=== PATIENT | female | born 1945 | race Caucasian/White ===

== ENCOUNTER → 2017-11-16 15:47 | Outpatient (CLI) | payer MEDICARE, OTHER, SELFPAY ==
--- NOTE | 2017-11-16 | MM_ITS ---
MM Dig SC mamm unilat LT CAD CAD Screening ORDERING PHYSICIAN : Shelley Hernandez PATIENT AGE: 72 years GENDER: Female INDICATION: Right mastectomy for previous breast cancer. No hormones. No new complaints. Family history: Sr. and with breast cancer. TECHNIQUE: Standard CC and MLO images were obtained. R2 CAD reviewed COMPARISON:.: October 2016, 2015, 2012, 2011 mammograms utilized for comparison ========FINDINGS: ====== No significant new findings at the left breast. Moderately dense breast with most evident fibroglandular elements towards upper-outer quadrant stable pattern with no dominant mass nor suspicious calcifications. No significant new findings a follow-up left mammogram in one year recommended =====IMPRESSION: Stable left breast. . Moderately dense breast with no new areas concern Follow-up in one year BI-RADS Category: 1 Negative RECOMMENDED FOLLOW-UP: 1YR - 1 YEAR FOLLOW-UP (A letter has been sent to the patient regarding results of the study.)
== END ==
PROVIDERS: PCP Nurse Practitioner Family; Visit Provider Nurse Practitioner Family
DX: Z12.31 Encounter for screening mammogram for malignant neoplasm of breast (principal)
CPT/HCPCS: 77067

== ENCOUNTER → 2018-12-17 16:15 | Outpatient (CLI) | payer MEDICARE, OTHER, SELFPAY ==
--- NOTE | 2018-12-17 16:27 | MM_ITS ---
MM Dig SC mamm unilat LT CAD Ordering Physician: Shelley Hernandez APRN Patient Age: 73 years Female COMPARISON: October 2017, 2016, 2015, 2014, 2011 INDICATION: Routine screening left mammogram. No hormones. No new complaints. Previous right mastectomy Family history. Sister and maternal aunt with breast cancer TECHNIQUE: Cc and MLO view left breast with CAD screening FINDINGS: Moderate breast density with majority of fibroglandular elements towards upper outer quadrant. Stable pattern with no dominant nor suspicious mass. No suspicious calcifications. No significant new findings. Ongoing annual follow-up recommended. IMPRESSION: Stable left breast. No significant new findings. Moderate breast density . follow-up one year BI-RADS Category: 1 Negative RECOMMENDED FOLLOW-UP: 1YR 1 YEAR FOLLOW-UP A letter has been sent to the patient regarding results of the study.)
== END ==
PROVIDERS: PCP Nurse Practitioner Family; Visit Provider Nurse Practitioner Family
DX: Z12.31 Encounter for screening mammogram for malignant neoplasm of breast (principal)
CPT/HCPCS: 77067

== ENCOUNTER 2024-10-13 12:28 | Observation (INO) | payer MEDICARE, OTHER, SELFPAY ==
[2024-10-13] VITALS (9 sets, daily range): BP systolic 114–142; BP diastolic 57–74; PULSE 107–120; RESP 16–31; TEMP 36.8–37.4; O2SAT 87–98; BMI 29.6; BMI 26.6
--- NOTE | 2024-10-13 12:44 | XR_ITS ---
PROCEDURE INFORMATION: Exam: XR Chest Exam date and time: 10/13/2024 1:00 PM Age: 79 years old Clinical indication: Cough and shortness of breath; Additional info: SOA, cough TECHNIQUE: Imaging protocol: Radiologic exam of the chest. Views: 1 view. COMPARISON: No relevant prior studies available. FINDINGS: Lungs: Bibasilar hazy patchy opacities, volzi-[id number]-adti-left. Pleural spaces: Unremarkable. No pleural effusion. No pneumothorax. Heart/Mediastinum: Unremarkable. No cardiomegaly. Vasculature: Atherosclerotic disease of the aortic arch. Bones/joints: Degenerative changes of the visualized osseous structures. Demineralized bones. Soft tissues: Right chest wall postprocedural changes. IMPRESSION: Basilar opacities likely service liaison representative of scarring/atelectasis without focal consolidation, difficult to exclude superimposed infection.
--- NOTE | 2024-10-13 12:44 | PC.NURSE ---
PT 87% ON ROOM AIR, PLACED ON 2L/NC, SAT TO 95% AT THIS TIME
--- NOTE | 2024-10-13 12:48 | ED_ITS ---
Discharge Plan Disposition Patient Disposition: Admitted Condition: Good Clinical Impressions Clinical Impression: Influenza A with pneumonia Discharge ED Provider: Aramis Jara General Adult HPI <KAYLEE Bella - Last Filed: 10/13/24 14:30> General Chief complaint: Weakness Stated complaint: cough soa lethargy fever Time Seen by Provider: 10/13/24 12:31 Mode of Arrival: Wheelchair Limitations: No Limitations Description of Symptoms (Recalled from ER Triage Doc. by RN): PT BROUGHT BY FAMILY FOR COUGH, BODYACHES, DIZZINESS AND FAMILY REPORTS PT IS LETHARGIC PT ALERT AND WILL ANSWER QUESTIONS. SYMPTOMS X 2 DAYS WITHOUT IMPROVEMENT History of Present Illness HPI narrative: Patient presents with cough, fever, runny nose since Monday. Today she had increasing fatigue. She is also complained of shortness of breath. She was exposed to upper respiratory symptoms by family member. MD complaint: cough, dyspnea Onset (ago): day(s) Location: chest Severity: moderate Consistency: constant Relieving factors: none Exacerbating factors: none Associated symptoms: fever/chills, shortness of breath and weakness; negative nausea/vomiting Related Data Home Medications ?Medication ?Instructions ?Recorded ?Confirmed losartan 25 mg tablet 25 mg PO DAILY 10/13/24 10/13/24 simvastatin 10 mg tablet 10 mg PO DAILY 10/13/24 10/13/24 Allergies Allergy/AdvReac Type Severity Reaction Status Date / Time peanut Allergy Other Verified 10/13/24 12:49 PFSH <KAYLEE Bella - Last Filed: 10/13/24 14:30> PFS Disclaimer: The information contained in this section may have been updated after the patient was seen, as this information can be updated by other users. Medical History Hypertension Breast cancer Surgical History H/O mastectomy Family History No significant family history Social History (Updated 10/13/24 @ 14:30 by KAYLEE Bella) Smoking Status: Unknown if ever smoked alcohol intake: never current occupational status: other Travel in the last 8 weeks: None Have you lived/traveled outside [place] in past 30 days?: No Contact w/someone who lives/traveled outside US past 30 days?: No Exposure to someone with infectious disease in past 14 days?: No Do you have a fever (greater than 100.4 F or 38 C)?: Yes Have you tested positive for COVID-19: No Exposed to someone with COVID-19 in past 14 days?: No Do you have a sore throat?: No Do you have a cough?: Yes Do you have any weakness?: Yes Do you have any diarrhea?: No Are you experiencing any unusual bleeding?: No Do you have any muscle aches/pain?: No Do you have any abdominal pain?: No Are you experiencing loss of taste or smell?: No <KAYLEE Bella - Last Filed: 10/13/24 14:30> ROS Obtained: Yes Systems reviewed as appropriate & no additional complaints except as documented Physical Exam <KAYLEE Bella Last Filed: 10/13/24 14:30> General General appearance: alert and in no apparent distress Head Head exam: atraumatic and normocephalic Eye Eye exam: Present normal appearance and EOMI ENT ENT exam: Present normal exam Chest Chest inspection: Present symmetric chest wall rise Respiratory Respiratory exam: Present other (rales B/L with diminished breath sounds ); Absent wheezes or stridor Cardiovascular Cardiovascular exam: Present regular rate and normal rhythm; Absent systolic murmur Neurological Exam Neurological exam: Present alert and oriented X3 Psychiatric Psychiatric exam: Present normal affect and normal mood Skin Skin exam: Present warm, dry and intact Medical Decision Making <KAYLEE Bella Last Filed: 10/13/24 14:30> Medical Records Screening: Per USPSTF and CDC recommendations, given the prevalence of disease in our region, it is our hospital?s policy to screen for HIV and viral Hepatitis for all patients aged 18 and over and those with ongoing risk factors. Tony Inquiry Pt receiving controlled substance: No Vital Signs: 10/13/24 12:30 10/13/24 12:42 10/13/24 12:45 Temperature 99.3 F Temperature Source Oral Pulse Rate 116 H 116 H Pulse Rate [Apical] 120 H Respiratory Rate 18 28 H 21 Blood Pressure Blood Pressure [Right Arm] 142/66 H Blood Pressure Mean Blood Pressure Mean [Right Arm] 91 Blood Pressure Source Blood Pressure Source [Right Arm] Automatic Cuff Blood Pressure Position [Right Arm] Sitting 02 Sat by Pulse Oximetry 87 L 87 L 95 Oxygen Delivery Method Room Air Room Air Nasal Cannula Oxygen Flow Rate (LPM) 2 10/13/24 13:00 10/13/24 13:30 10/13/24 14:34 Temperature 98.8 F Temperature Source Oral Pulse Rate 112 H 110 H 110 H Pulse Rate [Apical] Respiratory Rate 23 31 H 28 H Blood Pressure 118/74 132/57 L 114/58 L Blood Pressure [Right Arm] Blood Pressure Mean 94 Blood Pressure Mean [Right Arm] Blood Pressure Source Automatic Cuff Blood Pressure Source [Right Arm] Blood Pressure Position [Right Arm] 02 Sat by Pulse Oximetry 96 96 Oxygen Delivery Method Room Air Nasal Cannula Nasal Cannula Oxygen Flow Rate (LPM) 2 2 Lab Data Lab Results 10/13/24 12:37: SARS-CoV-2 (PCR) Not detected, Influenza A Untype (PCR) Detected A, Influenza Type B (PCR) Not detected 10/13/24 12:44: VBG pH 7.40, VBG pCO2 36.3, VBG pO2 60.9 H, VBG HCO3 21.8 L, VBG Total CO2 22.9 L, VBG O2 Saturation 91.7 H, VBG Base Excess -3.0 L, VBG Lactic Acid 1.2 10/13/24 12:45: WBC 10.4, RBC 3.77 L, Hgb 11.5 L, Hct 33.7 L, MCV 89.4, MCH 30.5, MCHC 34.1, RDW 12.9, Plt Count 262, MPV 9.7, Neut % (Auto) 74.6, Lymph % (Auto) 16.6, [place] % (Auto) 8.2, Eos % (Auto) 0.0 L, Baso % (Auto) 0.2, Neut # (Auto) 7.8, Lymph # (Auto) 1.7, [place] # (Auto) 0.9, Eos # (Auto) 0.0, Baso # (Auto) 0.0, Sodium 134 L, Potassium 3.3 L, Chloride 99, Carbon Dioxide 27, Anion Gap 11.3, BUN 15, Creatinine 0.70, Estimated Creat Clear 50, Estimated GFR 81, Est GFR ( Amer) 97, Glucose 108 H, Calcium 8.4, Total Bilirubin 0.7, AST 30, ALT 18, Alkaline Phosphatase 93, Troponin I 0.02, NT-Pro-B Natriuret Pep 3180 H, Total Protein 6.7, Albumin 3.9, Globulin 2.8, Albumin/Globulin Ratio 1.4 10/13/24 12:45 10/13/24 12:45 Orders (Tests/Meds): ED MEDICATIONS Generic Name Dose Route Start Last Admin Trade Name Freq PRN Reason Stop Dose Admin Acetaminophen 650 mg 10/13/24 14:07 10/13/24 14:14 Acetaminophen 325mg Tab PO 11/12/24 14:06 650 mg Q4HP PRN Administration Fever or Mild Pain (1-3) Discontinued Medications Generic Name Dose Route Start Last Admin Trade Name Freq PRN Reason Stop Dose Admin Oseltamivir Phosphate 75 mg 10/13/24 14:04 10/13/24 14:14 Oseltamivir 75mg Capsule PO 10/13/24 14:05 75 mg ONCE ONE Administration Sodium Chloride 500 ml 10/13/24 12:45 10/13/24 13:03 Sodium Chloride 0.9% 500ml Bag IV 10/13/24 12:46 500 ml ONCE ONE Administration Sodium Chloride 500 ml 10/13/24 14:03 10/13/24 14:14 Sodium Chloride 0.9% 500ml Bag IV 10/13/24 14:04 500 ml ONCE ONE Administration ORDERS Category Date Time Status POCUS Point of Care (ER Only) Stat Exams 10/13/24 13:54 Completed XR chest portable Stat Exams 10/13/24 12:44 Completed BNP [NT Pro Brain Natriuretic Pep.] Stat Lab 10/13/24 12:45 Completed Complete Blood Count Auto Diff AMLAB Lab 10/14/24 06:00 Ordered Complete Blood Count Auto Diff Stat Lab 10/13/24 12:45 Completed Comprehensive Metabolic Panel AMLAB Lab 10/14/24 06:00 Ordered Comprehensive Metabolic Panel Stat Lab 10/13/24 12:45 Completed HIV Combo Routine Lab 10/13/24 14:07 Ordered HIV Combo Stat Lab 10/13/24 12:45 Received Hepatitis C Ab Qual. W/ RFX Routine Lab 10/13/24 14:07 Ordered Hepatitis C Ab Qual. W/ RFX Stat Lab 10/13/24 12:45 Received Magnesium AMLAB Lab 10/14/24 06:00 Ordered Rapid PCR Covid and Flu A/B Stat Lab 10/13/24 12:37 Completed Trop I [Troponin I] Stat Lab 10/13/24 12:45 Completed Troponin I Q3H Lab 10/13/24 16:00 Ordered Troponin I Q3H Lab 10/13/24 19:00 Ordered UA [Urinalysis and Microscopic] Stat Lab 10/13/24 12:48 Ordered Blood Culture Stat Micro 10/13/24 13:32 Received VBG [Venous Blood Gas] Stat RT 10/13/24 12:44 Completed Medical Decision Narrative: In summary patient is a 79-year-old who presents the emergency department for evaluation of cough, fever, shortness of. Patient is tachycardic, upon arrival, afebrile. Rales on exam. Differential diagnosis includes pneumonia, influenza, dehydration, heart failure, ACS. Initial workup will be conducted with labs, EKG, chest x-ray, VBG. Initial inventions include IV fluid bolus. Initial workup reviewed by me positive for influenza A, BNP elevated, however EF normal on bedside u/s. Upon repeat evaluation patient had improvement in symptoms after IV fluids. Given Tamiflu and admitted to hospitalist for influenza A pneumonia given hypoxia, tachcardia and dyspnpea. <Aramis Jara MD - Last Filed: 10/13/24 14:48> Vital Signs: 10/13/24 12:30 10/13/24 12:42 10/13/24 12:45 Temperature 99.3 F Temperature Source Oral Pulse Rate 116 H 116 H Pulse Rate [Apical] 120 H Respiratory Rate 18 28 H 21 Blood Pressure Blood Pressure [Right Arm] 142/66 H Blood Pressure Mean Blood Pressure Mean [Right Arm] 91 Blood Pressure Source Blood Pressure Source [Right Arm] Automatic Cuff Blood Pressure Position [Right Arm] Sitting 02 Sat by Pulse Oximetry 87 L 87 L 95 Oxygen Delivery Method Room Air Room Air Nasal Cannula Oxygen Flow Rate (LPM) 2 10/13/24 13:00 10/13/24 13:30 10/13/24 14:34 Temperature 98.8 F Temperature Source Oral Pulse Rate 112 H 110 H 110 H Pulse Rate [Apical] Respiratory Rate 23 31 H 28 H Blood Pressure 118/74 132/57 L 114/58 L Blood Pressure [Right Arm] Blood Pressure Mean 94 Blood Pressure Mean [Right Arm] Blood Pressure Source Automatic Cuff Blood Pressure Source [Right Arm] Blood Pressure Position [Right Arm] 02 Sat by Pulse Oximetry 96 96 Oxygen Delivery Method Room Air Nasal Cannula Nasal Cannula Oxygen Flow Rate (LPM) 2 2 Lab Data Lab Results 10/13/24 12:37: SARS-CoV-2 (PCR) Not detected, Influenza A Untype (PCR) Detected A, Influenza Type B (PCR) Not detected 10/13/24 12:44: VBG pH 7.40, VBG pCO2 36.3, VBG pO2 60.9 H, VBG HCO3 21.8 L, VBG Total CO2 22.9 L, VBG O2 Saturation 91.7 H, VBG Base Excess -3.0 L, VBG Lactic Acid 1.2 10/13/24 12:45: WBC 10.4, RBC 3.77 L, Hgb 11.5 L, Hct 33.7 L, MCV 89.4, MCH 30.5, MCHC 34.1, RDW 12.9, Plt Count 262, MPV 9.7, Neut % (Auto) 74.6, Lymph % (Auto) 16.6, [place] % (Auto) 8.2, Eos % (Auto) 0.0 L, Baso % (Auto) 0.2, Neut # (Auto) 7.8, Lymph # (Auto) 1.7, [place] # (Auto) 0.9, Eos # (Auto) 0.0, Baso # (Auto) 0.0, Sodium 134 L, Potassium 3.3 L, Chloride 99, Carbon Dioxide 27, Anion Gap 11.3, BUN 15, Creatinine 0.70, Estimated Creat Clear 50, Estimated GFR 81, Est GFR ( Amer) 97, Glucose 108 H, Calcium 8.4, Total Bilirubin 0.7, AST 30, ALT 18, Alkaline Phosphatase 93, Troponin I 0.02, NT-Pro-B Natriuret Pep 3180 H, Total Protein 6.7, Albumin 3.9, Globulin 2.8, Albumin/Globulin Ratio 1.4 Orders (Tests/Meds): ED MEDICATIONS Generic Name Dose Route Start Last Admin Trade Name Freq PRN Reason Stop Dose Admin Acetaminophen 650 mg 10/13/24 14:07 10/13/24 14:14 Acetaminophen 325mg Tab PO 11/12/24 14:06 650 mg Q4HP PRN Administration Fever or Mild Pain (1-3) Discontinued Medications Generic Name Dose Route Start Last Admin Trade Name Freq PRN Reason Stop Dose Admin Oseltamivir Phosphate 75 mg 10/13/24 14:04 10/13/24 14:14 Oseltamivir 75mg Capsule PO 10/13/24 14:05 75 mg ONCE ONE Administration Sodium Chloride 500 ml 10/13/24 12:45 10/13/24 13:03 Sodium Chloride 0.9% 500ml Bag IV 10/13/24 12:46 500 ml ONCE ONE Administration Sodium Chloride 500 ml 10/13/24 14:03 10/13/24 14:14 Sodium Chloride 0.9% 500ml Bag IV 10/13/24 14:04 500 ml ONCE ONE Administration ORDERS Category Date Time Status POCUS Point of Care (ER Only) Stat Exams 10/13/24 13:54 Completed XR chest portable Stat Exams 10/13/24 12:44 Completed BNP [NT Pro Brain Natriuretic Pep.] Stat Lab 10/13/24 12:45 Completed Complete Blood Count Auto Diff AMLAB Lab 10/14/24 06:00 Ordered Complete Blood Count Auto Diff Stat Lab 10/13/24 12:45 Completed Comprehensive Metabolic Panel AMLAB Lab 10/14/24 06:00 Ordered Comprehensive Metabolic Panel Stat Lab 10/13/24 12:45 Completed HIV Combo Routine Lab 10/13/24 14:07 Ordered HIV Combo Stat Lab 10/13/24 12:45 Received Hepatitis C Ab Qual. W/ RFX Routine Lab 10/13/24 14:07 Ordered Hepatitis C Ab Qual. W/ RFX Stat Lab 10/13/24 12:45 Received Magnesium AMLAB Lab 10/14/24 06:00 Ordered Rapid PCR Covid and Flu A/B Stat Lab 10/13/24 12:37 Completed Trop I [Troponin I] Stat Lab 10/13/24 12:45 Completed Troponin I Q3H Lab 10/13/24 16:00 Ordered Troponin I Q3H Lab 10/13/24 19:00 Ordered UA [Urinalysis and Microscopic] Stat Lab 10/13/24 12:48 Ordered Blood Culture Stat Micro 10/13/24 13:32 Received VBG [Venous Blood Gas] Stat RT 10/13/24 12:44 Completed ECG Data Tracing #1: Independently inter by me rate is 114, rhythm is regular, axis is normal, no ST elevation in anatomical contiguous leads, QTc 402. Medical Decision Narrative: In summary patient is a 79-year-old who presents the emergency department for evaluation of cough, fever, shortness of. Patient is tachycardic, upon arrival, afebrile. Rales on exam. Differential diagnosis includes pneumonia, influenza, dehydration, heart failure, ACS. Initial workup will be conducted with labs, EKG, chest x-ray, VBG. Initial inventions include IV fluid bolus. Initial workup reviewed by me positive for influenza A, BNP elevated, however EF normal on bedside u/s. Upon repeat evaluation patient had improvement in symptoms after IV fluids. Given Tamiflu and admitted to hospitalist for influenza A pneumonia given hypoxia, tachcardia and dyspnpea. Aramis Jara: I was consulted by the RAFAEL, and we discussed the complexity of the problems being addressed. I approved the treatment and management plan for this patient's care in the emergency department, thus performing a substantive portion of the medical decision making. Patient is influenza A positive, judicious volume resuscitation was conducted although full sepsis bolus fluids were considered they will be deferred given that she appeared euvolemic after 1 L crystalloid resuscitation has an elevated BNP. Agoas-tw-tsia cardiac ultrasound performed at bedside shows grossly normal ejection fraction. Given acute hypoxic respiratory failure in the setting of influenza A Tamiflu was administered and patient was admitted in stable condition. Indication: Shortness of breath Identified cardiac views: Cardiac parasternal long and modified apical four-chamber Findings: Cardiac activity present, gross wall motion normal, pericardial fusion absent, grossly decreased excursion of the aortic valve Impression: -From above Images were saved to permanent archive The study was technically adequate CPT: 54173 This study was performed by me, and I personally interpreted all images/videos. Based on my clinical judgement, these images were adequate and did not necessitate further imaging. Critical Care <KAYLEE Bella - Last Filed: 10/13/24 14:30> Critical Care Time Critical Care Time: No
--- NOTE | 2024-10-13 12:56 | ECG_ITS ---
APPROVED REPORT Exam: Resting ECG HR:114 bpm ECG Measurements Heart Rate 114 AXES ID 184 P 58 QRSd 77 QRS 59 QT 335 T 72 QTc 402 Conclusion SINUS TACHYCARDIA ABNORMAL RHYTHM ECG Electronically signed by : DORIS CALDWELL, 10/13/2024 14:30:34
[2024-10-13 12:59] LABS: Coronavirus 19, PCR Not Detected (NotDetected); Influenza B, PCR Not Detected (NotDetected)
[2024-10-13 13:03] LABS: Basophils % 0.2 % (0.1-2.0); Hematocrit 33.7 % (37.0-47.0); Hemoglobin 11.5 g/dL (12.2-16.2); Lymphocytes # 1.7 K/mm3 (0.7-4.5); Lymphocytes % 16.6 % (10-50); Mean Corpuscular HGB Conc 34.1 g/dL (31.8-35.4); Mean Corpuscular Hemoglobin 30.5 pg (27.0-31.2); Mean Corpuscular Volume 89.4 fl (81-99); Mean Platelet Volume 9.7 fl (7.4-10.4); Monocytes # 0.9 K/mm3 (0.1-1.0); Monocytes % 8.2 % (1.7-9.3); Neutrophils # 7.8 K/mm3 (1.8-7.8); Neutrophils % 74.6 % (37.0-80.0); Platelet Count 262 K/mm3 (142-424); Red Blood Count 3.77 M/mm3 (4.20-5.40); Red Cell Distribution Width 12.9 % (11.5-17.5); White Blood Count 10.4 K/mm3 (4.8-10.8)
[2024-10-13] MEDS: SODIUM CHLORIDE 0.9% 500ML BAG 500 ML IV ×2 (13:03→14:14)
[2024-10-13 13:06] LABS: Lactate Venous 1.2 mmol/L (0.4-2.0); VBG HCO3 21.8 mmol/L (23-30); VBG Oxygen Saturation 91.7 % (50-70); VBG PCO2 36.3 mmol/L (35-51); VBG PO2 60.9 mmol/L (28-40); VBG Total CO2 22.9 mmol/L (23-27)
[2024-10-13 13:10] LABS: Albumin Level 3.9 g/dl (3.5-5.0); Chloride 99 mmol/L (98-107); Potassium 3.3 mmoL/L (3.5-5.1); Sodium 134 mmol/L (136-145)
[2024-10-13 13:13] LABS: Alanine Aminotransferase 18 U/L (12-78); Albumin/Globulin Ratio 1.4 (1.1-1.8); Alkaline Phosphatase 93 U/L (38-126); Anion Gap 11.3 mEq/L (5-15); Aspartate Amino Transferase 30 U/L (14-36); Bilirubin,Total 0.7 mg/dl (0.2-1.3); Blood Urea Nitrogen 15 mg/dl (7-17); Calcium 8.4 mg/dl (8.4-10.2); Carbon Dioxide 27 mmol/L (22.0-30.0); Creatinine Clearance Estimated 50 mL/min (50-200); Estimated Glomerular Filt Rate 81 ml/min (>60); GFR (African American) 97 ML/MIN (>60); Globulin 2.8 g/dL (1.3-3.2); Glucose 108 mg/dl (74-100); Total Protein,Serum 6.7 g/dl (6.3-8.2)
[2024-10-13 13:23] LABS: NT Pro Brain Natriuretic Pep. 3180 pg/mL (0-450)
[2024-10-13 13:25] LABS: Influenza A, PCR Detected (NotDetected)
[2024-10-13 13:25] LABS: Troponin I 0.02 ng/ml (0.00-0.034)
--- NOTE | 2024-10-13 13:43 | PC.NURSE ---
ROUNDED ON THE PT. THE PT VOICES THAT SHE DOES NOT NEED ANYTHING AT THIS TIME. CALL LIGHT IS WITHIN REACH OF THE PT. FAMILY MEMBERS ARE PRESENT AT THE BEDSIDE.
--- NOTE | 2024-10-13 14:09 | P.HP_ITS ---
History of Present Illness *Admission Date: 10/13/24 *Reason for visit:: dyspnea, weakness *History of present illness: 79-year-old female history of breast cancer status postmastectomy in 1999 of the right breast, history of hypertension. Otherwise no significant past medical history. She presented to the ER with 2 to 3 days of worsening cough, weakness, shortness of breath. States she was becoming somewhat confused and severely fatigued. On initial workup found to be in tachypneic. Hypoxemic necessitating 2 L oxygen to sat in the low 90s. Workup in the ER found to be positive for flu A with pneumonia on imaging. Medicine consulted for admission and further management. Review of ER workup with mild hyponatremia and hypokalemia. Has patchy right lower lobe airspace disease. Feeling better after receiving fluids in the ER. Afebrile at this time. Denies nausea or vomiting. Denies any toña chest pain. No syncope. Alert and oriented x 3 PFSH [facility] Disclaimer: The information contained in this section may have been updated after the patient was seen, as this information can be updated by other users. Medical History UTI (urinary tract infection) Hypertension Breast cancer Surgical History H/O mastectomy Family History Other Family history of cancer No significant family history Social History Smoking Status: Former smoker alcohol intake: never current occupational status: other Travel in the last 8 weeks: None Have you lived/traveled outside [place] in past 30 days?: No Contact w/someone who lives/traveled outside US past 30 days?: No Exposure to someone with infectious disease in past 14 days?: No Do you have a fever (greater than 100.4 F or 38 C)?: Yes Have you tested positive for COVID-19: No Exposed to someone with COVID-19 in past 14 days?: No Do you have a sore throat?: No Do you have a cough?: Yes Do you have any weakness?: Yes Do you have any diarrhea?: No Are you experiencing any unusual bleeding?: No Do you have any muscle aches/pain?: No Do you have any abdominal pain?: No Are you experiencing loss of taste or smell?: No Review of Systems Review of Systems Review of systems (narrative): Review of systems Meds Home Medications and Allergies Home Medications ?Medication ?Instructions ?Recorded ?Confirmed ?Type losartan 25 mg tablet 25 mg PO DAILY 10/13/24 10/13/24 History simvastatin 10 mg tablet 10 mg PO DAILY 10/13/24 10/13/24 History New Prescriptions to Start Prescriptions: Allergies Allergy/AdvReac Type Severity Reaction Status Date / Time peanut Allergy Other Verified 10/13/24 12:49 Exam Data for Last 24 hours Vital signs and Labs for Last 24 Hours: Temp Pulse Resp BP Pulse Ox O2 Del Method O2 Flow Rate 99.3 F 110 H 31 H 132/57 L 96 Nasal Cannula 2 10/13/24 12:30 10/13/24 13:30 10/13/24 13:30 10/13/24 13:30 10/13/24 13:30 10/13/24 13:30 10/13/24 13:00 Laboratory Results - last 24 hr 10/13/24 12:37: SARS-CoV-2 (PCR) Not detected, Influenza A Untype (PCR) Detected A, Influenza Type B (PCR) Not detected 10/13/24 12:44: VBG pH 7.40, VBG pCO2 36.3, VBG pO2 60.9 H, VBG HCO3 21.8 L, VBG Total CO2 22.9 L, VBG O2 Saturation 91.7 H, VBG Base Excess -3.0 L, VBG Lactic Acid 1.2 10/13/24 12:45: WBC 10.4, RBC 3.77 L, Hgb 11.5 L, Hct 33.7 L, MCV 89.4, MCH 30.5, MCHC 34.1, RDW 12.9, Plt Count 262, MPV 9.7, Neut % (Auto) 74.6, Lymph % (Auto) 16.6, [place] % (Auto) 8.2, Eos % (Auto) 0.0 L, Baso % (Auto) 0.2, Neut # (Auto) 7.8, Lymph # (Auto) 1.7, [place] # (Auto) 0.9, Eos # (Auto) 0.0, Baso # (Au to) 0.0, Sodium 134 L, Potassium 3.3 L, Chloride 99, Carbon Dioxide 27, Anion Gap 11.3, BUN 15, Creatinine 0.70, Estimated Creat Clear 50, Estimated GFR 81, Est GFR ( Amer) 97, Glucose 108 H, Calcium 8.4, Total Bilirubin 0.7, AST 30, ALT 18, Alkaline Phosphatase 93, Troponin I 0.02, NT-Pro-B Natriuret Pep 3180 H, Total Protein 6.7, Albumin 3.9, Globulin 2.8, Albumin/Globulin Ratio 1.4 I & O for Last 24 hours: Intake & Output 10/10/24 10/11/24 10/12/24 10/13/24 23:59 23:59 23:59 23:59 Weight 71.214 kg Constitutional Constitutional: mild distress, average body habitus, chronically ill appearing and cooperative *Routine HEENT Exam Head: Present normocephalic Eye: Present EOMI and PERRL ENT: Present mucous membranes moist *Routine Neck Exam Neck: Present supple; Absent lymphadenopathy Routine Chest/Breast/Axilla Exam Comments: Absent right breast *Routine Respiratory Exam Respiratory: Present prolonged expiratory phase, rhonchi and crackles (Right lower lung field); Absent wheezes *Routine Cardiovascular Exam Cardiovascular: Present tachycardia *Routine Abdominal Exam Abdominal: Present soft and normoactive bowel sounds; Absent tenderness *Routine Rectal Exam Rectal:: deferred *Routine Genitalia Exam Genitalia:: deferred *Routine Extremities Exam Extremities: Absent cyanosis, clubbing or edema *Routine Skin Exam Skin: Present intact and warm; Absent rash *Routine Neurological Exam Neurological: Present alert, oriented X3 and moving all extremities; Absent altered mental status Assessment and Plan *Assessment and plan (1) Acute hypoxemic respiratory failure: Status: Acute Category: Medical Code(s): J96.01 - Acute respiratory failure with hypoxia (2) Influenza A with pneumonia: Status: Acute Category: Medical Code(s): J09.X1 - Influenza due to identified novel influenza A virus with pneumonia (3) Hypertension: Status: Acute Category: Medical Code(s): I10 - Essential (primary) hypertension Plan 79-year-old female with history of breast cancer and hypertension. Status postmastectomy. Presented with shortness of breath, confusion, weakness. Found to be flu a positive with pneumonia. Discussed case with ER physician, request admission for further management. Agreed to admit for further treatment. Started on Tamiflu. Currently on 2 L oxygen. Admitted to [facility] for further management. Problems addressed as follows: Flu pneumonia Acute hypoxemic respiratory failure -New oxygen requirement. Tachycardic. Flu a positive. Initiate Tamiflu 75 mg twice daily -Continue supplemental oxygen for goal sats greater 90%, currently on 2 L - White count 10.4, kidney function normal with BUN 15, creatinine 0.7. -Repeat CBC, CMP, magnesium ordered for the morning -Per my review of chest x-ray, has scarring versus airspace disease in right lower lobe. Has some crackling on exam. Consistent with pneumonia. Elevation in BNP of 3100. Unclear etiology of heart function. Will obtain echo in the morning to evaluate for CHF. Will consider diuretics pending findings. No significant peripheral edema on exam History of breast cancer on right side status post mastectomy. Complicates her history. Reportedly cancer free since mastectomy in 1999. If respiratory status does not improve the next 24 to 48 hours, will consider chest CT to ev aluate for additional pathology Holding home losartan and simvastatin setting of normotensive state and acute illness Full code Regular diet Lovenox 40 mg subcu daily
[2024-10-13] MEDS: OSELTAMIVIR 75MG CAPSULE 75 MG PO ×2 (14:14→22:10)
[2024-10-13] MEDS: ACETAMINOPHEN 325MG TAB 650 MG PO (14:14)
--- NOTE | 2024-10-13 14:18 | PC.NURSE ---
[employer]S RECONDITIONER NOTIFIED OF ADMISSION
--- NOTE | 2024-10-13 14:34 | PC.NURSE ---
Called report to Alaina Hewitt RN on Med/Surg
--- NOTE | 2024-10-13 14:43 | HMH.PHAINT1 ---
Pharmacy Intervention Comments: MEDICATION RECONCILIATION COMPLETE USING EXTERNAL PHARMACY FILL HISTORY.
[2024-10-13 15:03] LABS: HIV Combo NEGATIVE (Negative)
[2024-10-13 15:12] LABS: Hepatitis C Ab Qual. W/ RFX NEGATIVE (Negative)
[2024-10-13 16:58] LABS: Troponin I 0.02 ng/ml (0.00-0.034)
[2024-10-13 19:16] LABS: Microscopic, Urine URINE MICROSCOPIC (MICROSCOPIC)
[2024-10-13 19:18] LABS: Appearance,Urine CLEAR (Clear); Bilirubin,Urine Negative (Negative); Blood, Urine Negative (Negative); Color,Urine YELLOW (Yellow); Glucose,Urine (UA) Negative (Negative); Ketones,Urine 1+ (Negative); Leukocyte Esterase,Urine Negative (Negative); Nitrate,Urine Negative (Negative); PH,Urine 6.5 (5.0-8.5); Protein,Urine TRACE (Negative); Urobilinogen,Urine 0.2 EU/dl (0.2)
[2024-10-13 19:35] LABS: Troponin I < 0.01 ng/ml (0.00-0.034)
[2024-10-13 19:49] LABS: WBC,Urine Occasional #/hpf (0-3)
[2024-10-13 19:50] LABS: Bacteria,Urine Trace /lpf
[2024-10-14] VITALS: BP 145/53; PULSE 102; RESP 20; TEMP 38.7; O2SAT 94
[2024-10-14] MEDS: ACETAMINOPHEN 325MG TAB 650 MG PO ×2 (00:56→09:47)
[2024-10-14 04:00] VITALS: BMI 26.4
--- NOTE | 2024-10-14 05:24 | PC.NURSE ---
Addendum entered by Gia Tao RN 10/14/24 05:27: fever resolved with tylenol. Temp went from 101.7 to 98.9 within the hour. Original Note: Provider notified for tamiflu, see OCT. Pt became febile around midshift, tylenol given per OCT. ox4, RA. Plan of care ongoing.
[2024-10-14 06:53] LABS: Basophils % 0.3 % (0.1-2.0); Hematocrit 32.5 % (37.0-47.0); Hemoglobin 10.9 g/dL (12.2-16.2); Lymphocytes # 1.2 K/mm3 (0.7-4.5); Lymphocytes % 16.7 % (10-50); Mean Corpuscular HGB Conc 33.5 g/dL (31.8-35.4); Mean Corpuscular Hemoglobin 29.8 pg (27.0-31.2); Mean Corpuscular Volume 88.8 fl (81-99); Mean Platelet Volume 10.3 fl (7.4-10.4); Monocytes # 0.4 K/mm3 (0.1-1.0); Monocytes % 5.4 % (1.7-9.3); Neutrophils # 5.7 K/mm3 (1.8-7.8); Neutrophils % 77.3 % (37.0-80.0); Platelet Count 245 K/mm3 (142-424); Red Blood Count 3.66 M/mm3 (4.20-5.40); Red Cell Distribution Width 12.8 % (11.5-17.5); White Blood Count 7.4 K/mm3 (4.8-10.8)
[2024-10-14 07:03] LABS: Albumin Level 3.3 g/dl (3.5-5.0); Chloride 99 mmol/L (98-107); Potassium 3.4 mmoL/L (3.5-5.1); Sodium 130 mmol/L (136-145)
[2024-10-14 07:05] LABS: Alanine Aminotransferase 17 U/L (12-78); Aspartate Amino Transferase 32 U/L (14-36); Blood Urea Nitrogen 13 mg/dl (7-17); Creatinine Clearance Estimated 50 mL/min (50-200); Estimated Glomerular Filt Rate 96 ml/min (>60); GFR (African American) 116 ML/MIN (>60)
[2024-10-14 07:06] LABS: Albumin/Globulin Ratio 1.3 (1.1-1.8); Alkaline Phosphatase 91 U/L (38-126); Anion Gap 10.4 mEq/L (5-15); Bilirubin,Total 0.7 mg/dl (0.2-1.3); Carbon Dioxide 24 mmol/L (22.0-30.0); Globulin 2.6 g/dL (1.3-3.2); Glucose 100 mg/dl (74-100); Magnesium 1.9 mg/dl (1.6-2.3); Total Protein,Serum 5.9 g/dl (6.3-8.2)
--- NOTE | 2024-10-14 07:29 | EXP.DC.SUM ---
General Admission date:: 10/13/24 Discharge date: 10/14/24 HPI HPI HPI: 79-year-old female history of breast cancer status postmastectomy in 1999 of the right breast, history of hypertension. Otherwise no significant past medical history. She presented to the ER with 2 to 3 days of worsening cough, weakness, shortness of breath. States she was becoming somewhat confused and severely fatigued. On initial workup found to be in tachypneic. Hypoxemic necessitating 2 L oxygen to sat in the low 90s. Workup in the ER found to be positive for flu A with pneumonia on imaging. Medicine consulted for admission and further management. Review of ER workup with mild hyponatremia and hypokalemia. Has patchy right lower lobe airspace disease. Feeling better after receiving fluids in the ER. Afebrile at this time. Denies nausea or vomiting. Denies any toña chest pain. No syncope. Alert and oriented x 3 Hospital Course Hospital Course Hospital Course: 79-year-old female with history of breast cancer and hypertension. Status postmastectomy. Presented with shortness of breath, confusion, weakness. Found to be flu a positive with pneumonia. Discussed case with ER physician, request admission for further management. Agreed to admit for further treatment. Started on Tamiflu. Currently on 2 L oxygen. Admitted to [facility] for further management. Did well overnight. Stable oxygen requirement. Will discharge home to complete treatment for flu. Problems addressed as follows: Flu pneumonia Acute hypoxemic respiratory failure -New oxygen requirement. Tachycardic. Flu a positive. Initiate Tamiflu 75 mg twice daily. Requiring oxygen at 2 L. Continues to require oxygen at time of discharge. Room air saturation of 86% at rest. Necessitating 2 L continuously. White count normal at 10.4 on admission, improved to 7.4 on discharge. Kidney function and electrolytes normal. Tolerating p.o. intake. Intermittent fever. Okay to use Tylenol for fever. As she is on stable oxygen requirement and in no acute distress, will discharge home to complete therapy for flu with 5 days of Tamiflu. Chest x-ray shows scarring versus airspace disease in right lower lobe. Has been present on previous imaging. Consistent with viral etiology. No indication for antibiotics at this time. Needs close follow-up with PCP for reevaluation and to monitor for improvement clinically Elevation in BNP of 3100. No significant peripheral edema on exam. Would benefit from further workup as an outpatient when recovered from flu. History of breast cancer on right side status post mastectomy. Complicates her history. Reportedly cancer free since mastectomy in 1999. Holding home losartan and simvastatin setting of normotensive state and acute illness. Okay to resume at discharge Exam Data for Last 24 hours Vital signs and Labs for Last 24 Hours: Temp Pulse Resp BP Pulse Ox O2 Del Method O2 Flow Rate 101.7 F H 102 H 20 145/53 H 94 L Room Air 2 10/14/24 00:00 10/14/24 00:00 10/14/24 00:00 10/14/24 00:00 10/14/24 00:00 10/14/24 06:06 10/14/24 00:00 Laboratory Results - last 24 hr 10/13/24 12:37: SARS-CoV-2 (PCR) Not detected, Influenza A Untype (PCR) Detected A, Influenza Type B (PCR) Not detected 10/13/24 12:44: VBG pH 7.40, VBG pCO2 36.3, VBG pO2 60.9 H, VBG HCO3 21.8 L, VBG Total CO2 22.9 L, VBG O2 Saturation 91.7 H, VBG Base Excess -3.0 L, VBG Lactic Acid 1.2 10/13/24 12:45: WBC 10.4, RBC 3.77 L, Hgb 11.5 L, Hct 33.7 L, MCV 89.4, MCH 30.5, MCHC 34.1, RDW 12.9, Plt Count 262, MPV 9.7, Neut % (Auto) 74.6, Lymph % (Auto) 16.6, [place] % (Auto) 8.2, Eos % (Auto) 0.0 L, Baso % (Auto) 0.2, Neut # (Auto) 7.8, Lymph # (Auto) 1.7, [place] # (Auto) 0.9, Eos # (Auto) 0.0, Baso # (Auto) 0.0, Sodium 134 L, Potassium 3.3 L, Chloride 99, Carbon Dioxide 27, Anion Gap 11.3, BUN 15, Creatinine 0.70, Estimated Creat Clear 50, Estimated GFR 81, Est GFR ( Amer) 97, Glucose 108 H, Calcium 8.4, Total Bilirubin 0.7, AST 30, ALT 18, Alkaline Phosphatase 93, Troponin I 0.02, NT-Pro-B Natriuret Pep 3180 H, Total Protein 6.7, Albumin 3.9, Globulin 2.8, Albumin/Globulin Ratio 1.4, HCV Ab TIKA w/Rflx PCR Qn Negative, HIV Ag/Ab Combo Qual Negative 10/13/24 16:20: Troponin I 0.02 10/13/24 18:16: Urine Color Yellow, Urine Appearance Clear, Urine pH 6.5, Ur Specific [place] 1.020, Urine Protein Trace, Urine Glucose (UA) Negative, Urine Ketones 1+, Urine Blood Negative, Urine Nitrate Negative, Urine Bilirubin Negative, Urine Urobilinogen 0.2, Ur Leukocyte Esterase Negative, Urine RBC None, Urine WBC Occasional, Ur Squamous Epith Cells 3-5, Urine Bacteria Trace 10/13/24 19:00: Troponin I < 0.01 10/14/24 06:17: WBC 7.4 D, RBC 3.66 L, Hgb 10.9 L, Hct 32.5 L, MCV 88.8, MCH 29.8, MCHC 33.5, RDW 12.8, Plt Count 245, MPV 10.3, Neut % (Auto) 77.3, Lymph % (Auto) 16.7, [place] % (Auto) 5.4, Eos % (Auto) 0.0 L, Baso % (Auto) 0.3, Neut # (Auto) 5.7, Lymph # (Auto) 1.2, [place] # (Auto) 0.4, Eos # (Auto) 0.0, Baso # (Auto) 0.0, Sodium 130 L, Potassium 3.4 L, Chloride 99, Carbon Dioxide 24, Anion Gap 10.4, BUN 13, Creatinine 0.60, Estimated Creat Clear 50, Estimated GFR 96, Est GFR ( Amer) 116, Glucose 100, Calcium 8.0 L, Magnesium 1.9, Total Bilirubin 0.7, AST 32, ALT 17, Alkaline Phosphatase 91, Total Protein 5.9 L, Albumin 3.3 L D, Globulin 2.6, Albumin/Globulin Ratio 1.3 I & O for Last 24 hours: Intake & Output 10/11/24 10/12/24 10/13/24 10/14/24 23:59 23:59 23:59 23:59 Intake Total 1520 / 1520 Output Total 0 / 0 Balance 1520 / 1520 Weight 70.307 kg 70.307 kg Constitutional Constitutional: no acute distress, average body habitus, chronically ill appearing and cooperative *Routine HEENT Exam Head: Present normocephalic Eye: Present EOMI and PERRL ENT: Present mucous membranes moist *Routine Neck Exam Neck: Present supple; Absent lymphadenopathy Routine Chest/Breast/Axilla Exam Comments: Status post right mastectomy *Routine Respiratory Exam Respiratory: Present prolonged expiratory phase and crackles (Right lung field); Absent rhonchi or wheezes *Routine Cardiovascular Exam Cardiovascular: Present RRR *Routine Abdominal Exam Abdominal: Present soft and normoactive bowel sounds; Absent tenderness *Routine Rectal Exam Patient deferred: visual exam *Routine Exam Patient deferred: external exam *Routine Extremities Exam Extremities: Absent cyanosis, clubbing or edema *Routine Skin Exam Skin: Present intact and warm; Absent rash *Routine Neurological Exam Neurological: Present alert, oriented X3 and moving all extremities; Absent altered mental status Results Data Completed and Pending Labs on day of discharge: Labs from last 24 hours 10/14/24 10/13/24 10/13/24 06:17 19:00 18:16 WBC 7.4 D RBC 3.66 L Hgb 10.9 L Hct 32.5 L MCV 88.8 MCH 29.8 MCHC 33.5 RDW 12.8 Plt Count 245 MPV 10.3 Neut % (Auto) 77.3 Lymph % (Auto) 16.7 [place] % (Auto) 5.4 Eos % (Auto) 0.0 L Baso % (Auto) 0.3 Neut # (Auto) 5.7 Lymph # (Auto) 1.2 [place] # (Auto) 0.4 Eos # (Auto) 0.0 Baso # (Auto) 0.0 VBG pH VBG pCO2 VBG pO2 VBG HCO3 VBG Total CO2 VBG O2 Saturation VBG Base Excess VBG Lactic Acid Sodium 130 L Potassium 3.4 L Chloride 99 Carbon Dioxide 24 Anion Gap 10.4 BUN 13 Creatinine 0.60 Estimated Creat Clear 50 Estimated GFR 96 Est GFR ( Amer) 116 Glucose 100 Calcium 8.0 L Magnesium 1.9 Total Bilirubin 0.7 AST 32 ALT 17 Alkaline Phosphatase 91 Troponin I < 0.01 NT-Pro-B Natriuret Pep Total Protein 5.9 L Albumin 3.3 L D Globulin 2.6 Albumin/Globulin Ratio 1.3 Urine Color Yellow Urine Appearance Clear Urine pH 6.5 Ur Specific [place] 1.020 Urine Protein Trace Urine Glucose (UA) Negative Urine Ketones 1+ Urine Blood Negative Urine Nitrate Negative Urine Bilirubin Negative Urine Urobilinogen 0.2 Ur Leukocyte Esterase Negative Urine RBC None Urine WBC Occasional Ur Squamous Epith Cells 3-5 Urine Bacteria Trace SARS-CoV-2 (PCR) HCV Ab TIKA w/Rflx PCR Qn HIV Ag/Ab Combo Qual Influenza A Untype (PCR) Influenza Type B (PCR) 10/13/24 10/13/24 10/13/24 16:20 12:45 12:44 WBC 10.4 RBC 3.77 L Hgb 11.5 L Hct 33.7 L MCV 89.4 MCH 30.5 MCHC 34.1 RDW 12.9 Plt Count 262 MPV 9.7 Neut % (Auto) 74.6 Lymph % (Auto) 16.6 [place] % (Auto) 8.2 Eos % (Auto) 0.0 L Baso % (Auto) 0.2 Neut # (Auto) 7.8 Lymph # (Auto) 1.7 [place] # (Auto) 0.9 Eos # (Auto) 0.0 Baso # (Auto) 0.0 VBG pH 7.40 VBG pCO2 36.3 VBG pO2 60.9 H VBG HCO3 21.8 L VBG Total CO2 22.9 L VBG O2 Saturation 91.7 H VBG Base Excess -3.0 L VBG Lactic Acid 1.2 Sodium 134 L Potassium 3.3 L Chloride 99 Carbon Dioxide 27 Anion Gap 11.3 BUN 15 Creatinine 0.70 Estimated Creat Clear 50 Estimated GFR 81 Est GFR ( Amer) 97 Glucose 108 H Calcium 8.4 Magnesium Total Bilirubin 0.7 AST 30 ALT 18 Alkaline Phosphatase 93 Troponin I 0.02 0.02 NT-Pro-B Natriuret Pep 3180 H Total Protein 6.7 Albumin 3.9 Globulin 2.8 Albumin/Globulin Ratio 1.4 Urine Color Urine Appearance Urine pH Ur Specific [place] Urine Protein Urine Glucose (UA) Urine Ketones Urine Blood Urine Nitrate Urine Bilirubin Urine Urobilinogen Ur Leukocyte Esterase Urine RBC Urine WBC Ur Squamous Epith Cells Urine Bacteria SARS-CoV-2 (PCR) HCV Ab TIKA w/Rflx PCR Qn Negative HIV Ag/Ab Combo Qual Negative Influenza A Untype (PCR) Influenza Type B (PCR) 10/13/24 12:37 WBC RBC Hgb Hct MCV MCH MCHC RDW Plt Count MPV Neut % (Auto) Lymph % (Auto) [place] % (Auto) Eos % (Auto) Baso % (Auto) Neut # (Auto) Lymph # (Auto) [place] # (Auto) Eos # (Auto) Baso # (Auto) VBG pH VBG pCO2 VBG pO2 VBG HCO3 VBG Total CO2 VBG O2 Saturation VBG Base Excess VBG Lactic Acid Sodium Potassium Chloride Carbon Dioxide Anion Gap BUN Creatinine Estimated Creat Clear Estimated GFR Est GFR ( Amer) Glucose Calcium Magnesium Total Bilirubin AST ALT Alkaline Phosphatase Troponin I NT-Pro-B Natriuret Pep Total Protein Albumin Globulin Albumin/Globulin Ratio Urine Color Urine Appearance Urine pH Ur Specific [place] Urine Protein Urine Glucose (UA) Urine Ketones Urine Blood Urine Nitrate Urine Bilirubin Urine Urobilinogen Ur Leukocyte Esterase Urine RBC Urine WBC Ur Squamous Epith Cells Urine Bacteria SARS-CoV-2 (PCR) Not detected HCV Ab TIKA w/Rflx PCR Qn HIV Ag/Ab Combo Qual Influenza A Untype (PCR) Detected A Influenza Type B (PCR) Not detected DS: Diagnosis Discharge Diagnosis (1) Acute hypoxemic respiratory failure: Status: Acute Code(s): J96.01 - Acute respiratory failure with hypoxia (2) Influenza A with pneumonia: Status: Acute Code(s): J09.X1 - Influenza due to identified novel influenza A virus with pneumonia (3) Hypertension: Status: Acute Code(s): I10 - Essential (primary) hypertension Meds Home Medications and Allergies Home Medications ?Medication ?Instructions ?Recorded ?Confirmed ?Type losartan 25 mg tablet 25 mg PO DAILY 10/13/24 10/13/24 History simvastatin 10 mg tablet 10 mg PO DAILY 10/13/24 10/13/24 History oseltamivir 6 mg/mL oral 30 mg (5 mL) PO BID 4 days #40 mL 10/14/24 Rx suspension (Tamiflu) New Prescriptions to Start Prescriptions: oseltamivir [Tamiflu] Herman Arnold Allergies Allergy/AdvReac Type Severity Reaction Status Date / Time peanut Allergy Other Verified 10/13/24 12:49 Discharge Plan Disposition Patient Disposition: Home, Self-Care Condition: Good Follow up Plan Follow up with: Constanza Garcia APRN [Primary Care Provider] - 10/21/24 10:40 am Prescriptions/Medication Reconciliation: New oseltamivir [Tamiflu] 6 mg/mL Suspension For Reconstitution 30 mg PO BID 4 Days Qty: 40 0RF Continued losartan 25 mg tablet 25 mg PO DAILY Patient Comments: TAKE 1 TABLET BY MOUTH ONCE DAILY simvastatin 10 mg tablet 10 mg PO DAILY Patient Comments: TAKE 1 TABLET BY MOUTH ONCE DAILY Other Ambulatory Orders: Home Medical Equipment (Routine) Location: None Selected Ordered By: Herman Arnold Problem Reconciliation Problems Reviewed?: Yes Patient Discharge Instructions ACTIVITY: Continue current activity DIET: continue same diet Patient Instructions: DI for Influenza -- Adult, DI for Respiratory Failure Print Language: Welsh Providers Primary Care Provider: Constanza Garcia Admit Provider: Herman Arnold Attending Provider: Herman Arnold
[2024-10-14 08:00] VITALS: BP 134/56; PULSE 106; RESP 20; TEMP 38.1; O2SAT 93
--- NOTE | 2024-10-14 08:33 | PC.NURSE ---
TECH NOTE; NOTIFIED NURSE OF 0800 VITAL SIGNS Malena PETERS, SRNA
[2024-10-14] MEDS: ENOXAPARIN 40MG/0.4ML SYRINGE 40 MG SUBCUT (09:47)
[2024-10-14] MEDS: OSELTAMIVIR PHOSPHATE 6MG/ML ORAL SUSP 60ML 30 MG PO (09:47)
--- NOTE | 2024-10-16 10:39 | SW/DCPLANNER ---
Phoned patient x2. Left a messages and call back number each time. Ravi Fraga
--- NOTE | 2024-10-16 13:23 | SW/DCPLANNER ---
Spoke with patients on the phone. Patients stated that she is doing well. Patient stated that she cant take her tamiflu because it makes her plum crazy. Patients stated that they are aware of her upcoming appointment. Patient stated that they have no concern or questions at this time. Ravi ROSS Job Compositor
== END 2024-10-14 13:05 | disposition home or self-care (01) ==
LOC: ER 14:11 → 2ND 14:24
PROVIDERS: Physician Assistant; Admitting Provider Internal Medicine Adolescent Medicine; Emergency Provider Emergency Medicine; PCP Nurse Practitioner Family; Visit Provider Internal Medicine Adolescent Medicine
DX: J09.X1 Influenza due to identified novel influenza A virus with pneumonia (principal); J96.01 Acute respiratory failure with hypoxia; J18.9 Pneumonia, unspecified organism; I10 Essential (primary) hypertension; E87.1 Hypo-osmolality and hyponatremia; E87.6 Hypokalemia; Z79.899 Other long term (current) drug therapy; Z90.11 Acquired absence of right breast and nipple
CPT/HCPCS: 36415; 71045; 80053; 81001; 82803; 83735; 83880; 84484; 85025; 86803; 87040; 87389; 87636; 93005; 99285; G0378; J1650

== ENCOUNTER 2024-10-17 23:54 | Observation (INO) | payer MEDICARE, OTHER, SELFPAY ==
[2024-10-17 23:55] VITALS: BP 158/68; PULSE 94; RESP 18; TEMP 36.6; O2SAT 95; BMI 26.4
[2024-10-18] VITALS (11 sets, daily range): BP systolic 124–171; BP diastolic 58–84; PULSE 93–107; RESP 14–18; TEMP 36.8–37.2; O2SAT 92–97; BMI 26.9
--- NOTE | 2024-10-18 00:06 | XR_ITS ---
PROCEDURE INFORMATION: Exam: XR Chest Exam date and time: 10/18/2024 12:16 AM Age: 79 years old Clinical indication: Shortness of breath; Additional info: Flu, general weak, SOA TECHNIQUE: Imaging protocol: Radiologic exam of the chest. Views: 2 views. COMPARISON: CR XR CHEST PORTABLE 10/13/2024 1:00 PM FINDINGS: Lungs: There are several new ill-defined nodular densities bilaterally most evident within the lateral left mid to upper lung zone. New diffuse airspace disease left lung base. Diffuse mild interstitial prominence similar to the prior exam. Pleural spaces: New blunting of the left lateral costophrenic angle. Heart/Mediastinum: Unremarkable. No cardiomegaly. Vasculature: Unremarkable. Bones/joints: Significant degenerative changes of the right glenohumeral joint. IMPRESSION: Several new ill-defined nodular densities bilaterally and diffuse airspace disease left lung base consistent with multifocal pneumonia. Small left effusion is suspected.
--- NOTE | 2024-10-18 00:13 | ECG_ITS ---
APPROVED REPORT Exam: Resting ECG HR:89 bpm ECG Measurements Heart Rate 89 AXES KS 161 P 63 QRSd 76 QRS 14 QT 369 T 25 QTc 416 Conclusion SINUS RHYTHM NORMAL ECG Electronically signed by : TOM ROSALES, 10/18/2024 07:03:46
[2024-10-18 00:53] LABS: Lactate Venous 1.3 mmol/L (0.4-2.0); VBG Base Excess 1.9 mmol/L (-2.4-2.3); VBG HCO3 26.8 mmol/L (23-30); VBG Oxygen Saturation 78.1 % (50-70); VBG PCO2 45.2 mmol/L (35-51); VBG PH 7.39 mmol/L (7.31-7.41); VBG PO2 41.8 mmol/L (28-40); VBG Total CO2 28.2 mmol/L (23-27)
[2024-10-18 00:55] LABS: Basophils # 0.1 K/mm3 (0-0.2); Basophils % 0.5 % (0.1-2.0); Eosinophils # 0.2 K/mm3 (0.0-0.4); Eosinophils % 1.3 % (0.1-12.0); Hematocrit 29.5 % (37.0-47.0); Hemoglobin 10.5 g/dL (12.2-16.2); Lymphocytes # 1.8 K/mm3 (0.7-4.5); Lymphocytes % 11.8 % (10-50); Mean Corpuscular HGB Conc 35.6 g/dL (31.8-35.4); Mean Corpuscular Hemoglobin 30.6 pg (27.0-31.2); Mean Platelet Volume 9.8 fl (7.4-10.4); Monocytes # 0.8 K/mm3 (0.1-1.0); Monocytes % 5.4 % (1.7-9.3); Neutrophils # 11.7 K/mm3 (1.8-7.8); Platelet Count 415 K/mm3 (142-424); Red Blood Count 3.43 M/mm3 (4.20-5.40); Red Cell Distribution Width 13.1 % (11.5-17.5); White Blood Count 15.5 K/mm3 (4.8-10.8)
[2024-10-18 01:00] LABS: MANUAL DIFFERENTIAL MANUAL DIFFERENTIAL (MANUAL DIFF)
--- NOTE | 2024-10-18 01:07 | ED_ITS ---
Discharge Plan Disposition Patient Disposition: Admitted Condition: Good Chief Complaint: Shortness of Breath/Dyspnea Prescriptions Prescriptions: No Action losartan 25 mg tablet 25 mg PO DAILY Patient Comments: TAKE 1 TABLET BY MOUTH ONCE DAILY simvastatin 10 mg tablet 10 mg PO DAILY Patient Comments: TAKE 1 TABLET BY MOUTH ONCE DAILY oseltamivir [Tamiflu] 6 mg/mL Suspension For Reconstitution 30 mg PO BID 4 Days Qty: 40 0RF Referrals Follow up/Referrals: Constanza Garcia APRN [Primary Care Provider] - See instructions Clinical Impressions Clinical Impression: Influenza A with pneumonia, Multifocal pneumonia, Hypokalemia Print Language Print Language: Bermudian Discharge ED Provider: Catherine Albright General Chief Complaint: Shortness of Breath/Dyspnea Stated Complaint: Flu+, symptoms worsened Time Seen by Provider: 10/18/24 00:06 Mode of Arrival: Wheelchair Source of Information: Patient Limitations: No Limitations Description of Symptoms (Recalled from ER Triage Doc. by RN): Diagnosed with flu on monday, discharged on monday. On 2L O2 from this past visit. History of Present Illness HPI narrative: 79-year-old female known to be positive for flu a presents to the ER with concerns of progressive weakness, shortness of breath. Patient tested positive for influenza and was admitted to the hospital for 24 hours, discharged on Tamiflu. reports that the Tamiflu started giving her hallucinations so the last time she took it was Monday, 2 days ago. She has continued to get worse according to both the and the patient, they describe her as more lethargic, they both admit that she is having a harder time thinking and having to think longer before she makes statements or does activities. She also gets weak and tired out much faster. She is having a worsening cough and more difficulty breathing despite having oxygen at home. Review of records demonstrates she was not discharged on any antibiotics and did not have a known bacterial infection at that time. Patient denies vomiting but does report 1 episode of diarrhea earlier today, nonbloody, nonmelanotic. She denies dysuria or hematuria. No new swelling in the legs. They report decreased oral intake. Patient answers my questions and is appropriate but she is slow to answer like they explained. She is able to stand and ambulate short distances Related Data Home Medications ?Medication ?Instructions ?Recorded ?Confirmed losartan 25 mg tablet 25 mg PO DAILY 10/13/24 10/18/24 simvastatin 10 mg tablet 10 mg PO DAILY 10/13/24 10/18/24 Previous Rx's ?Medication ?Instructions ?Recorded oseltamivir 6 mg/mL oral 30 mg (5 mL) PO BID 4 days #40 mL 10/14/24 suspension (Tamiflu) Allergies Allergy/AdvReac Type Severity Reaction Status Date / Time peanut Allergy Other Verified 10/13/24 12:49 [facility] Disclaimer: The information contained in this section may have been updated after the patient was seen, as this information can be updated by other users. Medical History UTI (urinary tract infection) Hypertension Breast cancer Surgical History H/O mastectomy Family History Other Family history of cancer No significant family history Social History Smoking Status: Never smoker alcohol intake: never current occupational status: other Travel in the last 8 weeks: None Exposure to someone with infectious disease in past 14 days?: Yes Other Medical History Have you received the Flu Vaccine for this season: No Have you received the Pneumonia Vaccine: No ROS Obtained: Yes Systems reviewed as appropriate & no additional complaints except as documented per HPI Physical Exam General General appearance: alert and in no apparent distress Comment: Ill-appearing but not in extremis Head Head exam: atraumatic and normocephalic Eye Eye exam: Present PERRL and EOMI ENT ENT exam: Present mucous membranes dry Neck Neck exam: Present normal inspection and full ROM; Absent lymphadenopathy Chest Chest inspection: Present symmetric chest wall rise; Absent tenderness Respiratory Respiratory exam: Absent normal lung sounds bilaterally (Diminished breath sounds on the right compared to the left), respiratory distress, wheezes or stridor Cardiovascular Cardiovascular exam: Present regular rate and normal rhythm Abdominal Exam Abdominal exam: Present soft; Absent distention, tenderness, guarding or rebound Extremities Exam Extremities exam: Present full ROM and edema (1+ bilaterally in the lower extremities) Neurological Exam Neurological exam: Present alert and oriented X3 (Fully oriented but slow to answer questions); Absent motor sensory deficit (Diffusely weak but able to follow commands equally in all extremities, no localizing deficits) Psychiatric Psychiatric exam: Present normal affect and normal mood Skin Skin exam: Present warm and dry HEART Score HEART Score HEART Score assessment performed?: Yes History (anamnesis): Slightly suspicious ECG: Normal Age: >65 years Risk factors: 3 or more risk factors Troponin: </= normal limit HEART Score: 4 Critical Care Critical Care Time Critical Care Time: No Medical Decision Making Medical Records Medical records reviewed: Yes I reviewed the patient's medical records. MR Comment: See HPI Tony Inquiry Pt receiving controlled substance: No Vital Signs Vital Signs: 10/17/24 23:55 10/18/24 00:01 10/18/24 00:40 Temperature 97.9 F Temperature Source Oral Pulse Rate 97 H 93 H Pulse Rate [Right Radial] 94 H Respiratory Rate 18 Blood Pressure 158/68 H 153/83 H Blood Pressure [Left Arm] 158/68 H Blood Pressure Mean [Left Arm] 98 Blood Pressure Source [Left Arm] Automatic Cuff Blood Pressure Position [Left Arm] Supine 02 Sat by Pulse Oximetry 95 93 L 97 Oxygen Delivery Method Nasal Cannula Oxygen Flow Rate (LPM) 2 10/18/24 01:00 10/18/24 01:30 Temperature Temperature Source Pulse Rate 94 H 94 H Pulse Rate [Right Radial] Respiratory Rate Blood Pressure 159/65 H 154/58 H Blood Pressure [Left Arm] Blood Pressure Mean [Left Arm] Blood Pressure Source [Left Arm] Blood Pressure Position [Left Arm] 02 Sat by Pulse Oximetry 94 L 97 Oxygen Delivery Method Oxygen Flow Rate (LPM) Lab Data Labs: Lab Results 10/18/24 00:41: WBC 15.5 H, RBC 3.43 L, Hgb 10.5 L, Hct 29.5 L, MCV 86.0, MCH 30.6, MCHC 35.6 H, RDW 13.1, Plt Count 415 D, MPV 9.8, Neut % (Auto) 76.0, Lymph % (Auto) 11.8, Bremer % (Auto) 5.4, Eos % (Auto) 1.3, Baso % (Auto) 0.5, N eut # (Auto) 11.7 H, Lymph # (Auto) 1.8, Bremer # (Auto) 0.8, Eos # (Auto) 0.2, Baso # (Auto) 0.1, Sodium 134 L, Potassium 3.0 L, Chloride 99, Carbon Dioxide 27, Anion Gap 11.0, BUN 7, Creatinine 0.60, Estimated Creat Clear 49, Estimated GFR 96, Est GFR ( Amer) 116, Glucose 117 H, Lactate 0.9, Calcium 8.5, Total Bilirubin 0.5, AST 47 H, ALT 30, Alkaline Phosphatase 232 H, NT-Pro-B Natriuret Pep 1120 H, Total Protein 6.6, Albumin 3.4 L, Globulin 3.2, Albumin/Globulin Ratio 1.1 10/18/24 00:46: VBG pH 7.39, VBG pCO2 45.2, VBG pO2 41.8 H, VBG HCO3 26.8, VBG Total CO2 28.2 H, VBG O2 Saturation 78.1 H, VBG Base Excess 1.9, VBG Lactic Acid 1.3 10/18/24 00:41 10/18/24 00:41 Response Orders (Tests/Meds): ED MEDICATIONS Generic Name Dose Route Start Last Admin Trade Name Freq PRN Reason Stop Dose Admin Sodium Chloride 3 ml 10/18/24 00:57 Sodium Chloride 3% 15ml Neb IH 11/17/24 00:56 ONCE PRN INDUCE SPUTUM COLLECTION Discontinued Medications Generic Name Dose Route Start Last Admin Trade Name Freq PRN Reason Stop Dose Admin Doxycycline Hyclate 100 mg/ 250 mls @ 166.667 mls/hr 10/18/24 00:56 10/18/24 01:21 Sodium Chloride IV 10/18/24 00:57 166.667 mls/hr ONCE ONE Administration Lactated Ringer's 500 mls @ 999 mls/hr 10/18/24 00:56 10/18/24 01:22 Lactated Ringer's 500ml IV 10/18/24 01:26 999 mls/hr .Q31M ONE Administration ORDERS Category Date Time Status CXR 2 view (NOT portable) [XR chest 2V] Stat Exams 10/18/24 00:06 Completed BNP [NT Pro Brain Natriuretic Pep.] Stat Lab 10/18/24 00:41 Completed CBC w/Auto Diff [Complete Blood Count Auto Diff] Stat Lab 10/18/24 00:41 Results CMP [Comprehensive Metabolic Panel] Stat Lab 10/18/24 00:41 Results Lactic Acid Stat Lab 10/18/24 00:41 Completed Trop I [Troponin I] Stat Lab 10/18/24 00:41 Results Troponin I Q3H Lab 10/18/24 03:15 Ordered Troponin I Q3H Lab 10/18/24 06:15 Ordered Urinalysis and Microscopic Stat Lab 10/18/24 00:06 Ordered Blood Culture Stat Micro 10/18/24 01:12 Received Sputum Culture & Gram Stain Stat Micro 10/18/24 00:57 Ordered VBG [Venous Blood Gas] Stat RT 10/18/24 00:46 Completed MDM Narrative Medical Decision Narrative: In summary, this 79-year-old female with comorbidities described in the HPI which are not at goal therapy presents to the emergency department today with worsening cough, generalized weakness in the setting of known flu. On initial evaluation patient is hemodynamically stable, afebrile, after ambulating into the ER she was saturating 95% on 2 L nasal cannula, she does have diminished breath sounds on the right compared to the left, abdominal exam reassuring, mild peripheral edema, she is oriented but slow to answer questions, no localizing neurodeficits, mucous membranes dry. Differential diagnosis includes but is not limited to effects of influenza, considered pneumonia, ACS, fluid overload, urinary tract infection, pleural effusion, electrolyte abnormality, dehydration, kidney dysfunction, among others. Based on these concerns, I ordered serum labs, cardiac workup, chest x-ray, urine studies. ECG personally interpreted demonstrates normal sinus rhythm, rate 89, normal axis, normal IN and QTc, no STEMI. Patient received IV fluids initially for treatment. Labs personally reviewed demonstrate leukocytosis significantly increased from prior, anemia stable from prior, patient does have neutrophil predominance with left shift, thrombocythemia, VBG with normal pH, normal pCO2, normal lactic, chemistry demonstrates hypokalemia, patient does have mild elevation of AST and alkaline phosphatase, nonspecific nonactionable at this time, initial troponin undetectably low less than 0.01, BNP 1120, improved from prior. XR personally interpreted demonstrates evidence of bilateral atypical pneumonia, see radiology read for final interpretation. Doxycycline ordered for treatment of atypical pneumonia, this will also cover for MRSA which is an increased possibility since patient is known to have flu Patient is appropriate for admission at this time given she has profound generalized weakness, intermittent bouts of mild alteration in mental status, and new multifocal pneumonia in the setting of active flu. I discussed this with patient and family and they are agreeable to this, I discussed this case with the hospitalist including her recent admission and current findings. Patient accepted for admission.
[2024-10-18] MEDS: DOXYCYCLINE HYCLATE 100 MG in 0.9 % SODIUM CHLORIDE 250 ML 166.667 MG IV ×2 (01:21→12:45)
[2024-10-18] MEDS: RINGERS SOLUTION,LACTATED 500 ML 999 ML IV (01:22)
[2024-10-18 01:38] LABS: NT Pro Brain Natriuretic Pep. 1120 pg/mL (0-450)
[2024-10-18 02:11] LABS: Lactic Acid 0.9 mmol/L (0.7-2.1)
[2024-10-18 02:12] LABS: Alanine Aminotransferase 30 U/L (12-78); Albumin Level 3.4 g/dl (3.5-5.0); Albumin/Globulin Ratio 1.1 (1.1-1.8); Alkaline Phosphatase 232 U/L (38-126); Aspartate Amino Transferase 47 U/L (14-36); Bilirubin,Total 0.5 mg/dl (0.2-1.3); Blood Urea Nitrogen 7 mg/dl (7-17); Calcium 8.5 mg/dl (8.4-10.2); Carbon Dioxide 27 mmol/L (22.0-30.0); Chloride 99 mmol/L (98-107); Creatinine Clearance Estimated 49 mL/min (50-200); Estimated Glomerular Filt Rate 96 ml/min (>60); GFR (African American) 116 ML/MIN (>60); Globulin 3.2 g/dL (1.3-3.2); Glucose 117 mg/dl (74-100); Sodium 134 mmol/L (136-145); Total Protein,Serum 6.6 g/dl (6.3-8.2)
--- NOTE | 2024-10-18 02:16 | PC.NURSE ---
critical recieved. potassium 3.0. notified
[2024-10-18 02:27] LABS: Troponin I < 0.01 ng/ml (0.00-0.034)
--- NOTE | 2024-10-18 02:44 | PC.NURSE ---
Report called to [facility]o; patient waiting on transport to floor by floor finisher helper
--- NOTE | 2024-10-18 02:58 | PC.NURSE ---
pt arrived to floor via wheelchair from ed at 0253.
--- NOTE | 2024-10-18 03:11 | P.HP_ITS ---
<Statement entered by Hayder Stirckland MD - 10/21/24 22:58> Personally evaluated patient and agree with plan of care as outlined by the JOINERY PATTERNMAKER. History of Present Illness *Admission Date: 10/18/24 *Reason for visit:: Progressive weakness *History of present illness: This is an 79-year-old female who has a past medical history significant for hypertension and breast cancer who presents with a chief complaint of intermittent altered mental status, progressive weakness, and shortness of breath. Due to her symptoms, patient presented to the emergency room for evaluation. While in the emergency room, plain films of the chest was consistent with several new healed defined nodular densities bilaterally and diffuse airspace disease in the left lung base consistent with multifocal pneumonia and a small left pleural effusion is suspected. Due to these f indings, patient is being admitted for further management. During my evaluation of the patient, patient states she has had some confusion. She also endorses having a productive cough that is tenacious at times and is described as thick and white. She has had progressive weakness with some shortness of breath. It is worth mentioning that she was recently admitted to our facility and diagnosed with flu A. She was observed overnight and discharged home on Tamiflu. Patient states that while taking the Tamiflu, she started to experience confusion, so she stopped taking the Tamiflu on Monday. She was sent home with supplemental oxygen upon discharge from our facility. Patient also states she has been having some lethargy and worsening dyspnea. She had 1 loose stool. She is currently denying any chest pain, lightheadedness, dizziness, fever, chills, rigors, nausea, vomiting, PND, orthopnea, and persistent diarrhea. Additional pertinent vitals obtained include a white blood cell count of 15.5, red blood cell count of 3.43, hemoglobin 10.5, hematocrit 29.5, sodium 134, potassium of 3, blood glucose of 117, AST of 47, alkaline phosphate of 232, BNP of 1120, and albumin of 3.4. [facility] Disclaimer: The information contained in this section may have been updated after the herrera goldman was seen, as this information can be updated by other users. Medical History UTI (urinary tract infection) Hypertension Breast cancer Surgical History H/O mastectomy Family History Other Family history of cancer No significant family history Social History Smoking Status: Never smoker alcohol intake: never current occupational status: other Travel in the last 8 weeks: None Exposure to someone with infectious disease in past 14 days?: Yes Other Medical History Have you received the Flu Vaccine for this season: No Have you received the Pneumonia Vaccine: No Review of Systems Review of Systems Review of systems:: pertinent systems reviewed and negative unless documented below Constitutional Constitutional: Reports fatigue, Reports malaise and Reports weakness Eyes Eyes: Reports system reviewed and no additional complaints, except as documented ENT Ears, Nose, Mouth, and Throat: Reports system reviewed and no additional com plaints, except as documented *Cardiovascular Cardiovascular: Reports system reviewed and no additional complaints, except as documented and Reports dyspnea *Respiratory Respiratory: Reports cough and Reports dyspnea *Gastrointestinal Gastrointestinal: Reports change in stool character and Reports diarrhea *Genitourinary Genitourinary: Reports system reviewed and no additional complaints, except as documented *Musculoskeletal Musculoskeletal: Reports system reviewed and no additional complaints, except as documented Integumentary/Breasts Skin/Breast: Reports system reviewed and no additional complaints, except as documented *Neurologic Neurologic: Reports system reviewed and no additional complaints, except as documented, Reports confusion and Reports weakness Psychiatric Psychiatric: Reports confusion Endocrine Endocrine: Reports system reviewed and no additional complaints, except as documented and Reports fatigue Hematologic/Lymphatic Hematologic/Lymphatic: Reports system reviewed and no additional complaints, except as documented Allergic/Immunologic Allergic/Immunologic: Reports system reviewed and no additional complaints, except as documented Meds Home Medications and Allergies Home Medications ?Medication ?Instructions ?Recorded ?Confirmed ?Type losartan 25 mg tablet 25 mg PO DAILY 10/13/24 10/18/24 History simvastatin 10 mg tablet 10 mg PO DAILY 10/13/24 10/18/24 History oseltamivir 6 mg/mL oral 30 mg (5 mL) PO BID 4 days #40 mL 10/14/24 10/18/24 Rx suspension (Tamiflu) New Prescriptions to Start Prescriptions: Allergies Allergy/AdvReac Type Severity Reaction Status Date / Time peanut Allergy Other Verified 10/13/24 12:49 Exam Data for Last 24 hours Vital signs and Labs for Last 24 Hours: Temp Pulse Resp BP Pulse Ox O2 Del Method O2 Flow Rate 98.9 F 94 H 18 134/71 94 L Nasal Cannula 2 10/18/24 02:43 10/18/24 02:43 10/18/24 02:43 10/18/24 02:43 10/18/24 02:30 10/18/24 02:43 10/18/24 02:43 Laboratory Results - last 24 hr 10/18/24 00:41: WBC 15.5 H, RBC 3.43 L, Hgb 10.5 L, Hct 29.5 L, MCV 86.0, MCH 30.6, MCHC 35.6 H, RDW 13.1, Plt Count 415 D, MPV 9.8, Neut % (Auto) 76.0, Lymph % (Auto) 11.8, Pierce % (Auto) 5.4, Eos % (Auto) 1.3, Baso % (Auto) 0.5, Neut # (Auto) 11.7 H, Lymph # (Auto) 1.8, Pierce # (Auto) 0.8, Eos # (Auto) 0.2, Baso # (Auto) 0.1, Sodium 134 L, Potassium 3.0 L, Chloride 99, Carbon Dioxide 27, Anion Gap 11.0, BUN 7, Creatinine 0.60, Estimated Creat Clear 49, Estimated GFR 96, Est GFR ( Amer) 116, Glucose 117 H, Lactate 0.9, Calcium 8.5, Total Bilirubin 0.5, AST 47 H, ALT 30, Alkaline Phosphatase 232 H, Troponin I < 0.01, NT-Pro-B Natriuret Pep 1120 H, Total Protein 6.6, Albumin 3.4 L, Globulin 3.2, Albumin/Globulin Ratio 1.1 10/18/24 00:46: VBG pH 7.39, VBG pCO2 45.2, VBG pO2 41.8 H, VBG HCO3 26.8, VBG Total CO2 28.2 H, VBG O2 Saturation 78.1 H, VBG Base Excess 1.9, VBG Lactic Acid 1.3 I & O for Last 24 hours: Intake & Output 10/15/24 10/16/24 10/17/24 10/18/24 23:59 23:59 23:59 23:59 Weight 69.853 kg Constitutional Constitutional: no acute distress and cooperative *Routine HEENT Exam Head: Present normocephalic and atraumatic Eye: Present EOMI, PERRL and normal accommodation ENT: Present mucous membranes moist *Routine Neck Exam Neck: Present supple and full ROM *Routine Respiratory Exam Respiratory: Present decreased breath sounds, able to speak in complete sentences and symmetric chest movement *Routine Cardiovascular Exam Cardiovascular: Present RRR, Normal S1 and Normal S2 *Routine Abdominal Exam Abdominal: Present soft and normoactive bowel sounds *Routine Rectal Exam Rectal:: deferred *Routine Genitalia Exam Genitalia:: deferred *Routine Extremities Exam Extremities: Present full ROM and normal capillary refill Routine Back/Spine/Pelvis Exam Back/Spine: Present full ROM *Routine Skin Exam Skin: Present intact, dry and warm *Routine Neurological Exam Neurological: Present alert, oriented X3, CN II-XII intact and moving all extremities Routine Psychiatric Exam Psychiatric: Present normal affect, cooperative, good insight and good judgment H&P: Result Impressions 79-year-old female patient who presents with a chief complaint of worsening symptoms since being diagnosed with flu a. She returns with multilobular pneumonia. Assessment and Plan *Assessment and plan (1) Multifocal pneumonia: Status: Acute Category: Medical Code(s): J18.9 - Pneumonia, unspecified organism (2) Acute hypoxemic respiratory failure: Status: Acute Category: Medical Code(s): J96.01 - Acute respiratory failure with hypoxia (3) Hypokalemia: Status: Acute Category: Medical Code(s): E87.6 - Hypokalemia (4) Leukocytosis: Status: Acute Qualifiers: Leukocytosis type: unspecified Qualified Code(s): D72.829 - Elevated white blood cell count, unspecified Category: Medical Code(s): D72.829 - Elevated white blood cell count, unspecified (5) Hyponatremia: Status: Acute Category: Medical Code(s): E87.1 - Hypo-osmolality and hyponatremia (6) Elevated liver enzymes: Status: Acute Category: Medical Code(s): R74.8 - Abnormal levels of other serum enzymes Plan Assessment: Multilobular pneumonia -There is a high concern for MRSA infection due to prior viral infection with flu -Patient was unable to tolerate Tamiflu-it caused confusion so this was discontinued by patient -3.375 g Zosyn IV every 6 hours -Due to a failure and equipment, was unable to obtain current CMP, so we will use doxycycline 100 mg IV twice daily for MRSA coverage -May change to vancomycin once we have a estimation of patient's GFR/creatinine function Acute hypoxemic respiratory failure -Will continue supplemental oxygen to maintain oxygen saturation greater 94% Hypokalemia -Give 40 mg of potassium p.o. x 1 -Recheck potassium in the a.m. with BMP Leukocytosis -Blood cultures x 2 -Procalcitonin -Will monitor CBC daily Hyponatremia -BNP is elevated -Patient does not appear to be hypervolemic -Chest x-ray is suggestive of a possible pleural effusion -Will obtain 2D echo -Will monitor for now Elevated liver enzymes -Will monitor Plan: Admit patient to the MedSurg unit Activity as tolerated Cardiac diet CBC/BMP daily 600 mg of Mucinex p.o. twice daily 25 mg of hydralazine p.o. 3 times daily as needed systolic blood pressure greater 180 or diastolic blood pressure greater than 110 2 mg morphine IV push every 4 hours as needed severe pain 4 mg Zofran IV push. Hours. Nausea vomit Sputum for culture Full code I will discuss this case with attending physician Dr. Strickland and a look forward to more input
--- NOTE | 2024-10-18 03:15 | CA_ITS ---
APPROVED REPORT EXAM: Comprehensive 2D, Doppler, and color-flow Echocardiogram Heading Matcher And Assembler: JEAN MARIE Lopez, RVS Ht: 5 ft 4 in Wt: 154lbs BSA: 1.75 BP: 134/71 mmHg Indications: Flu, Pneumonia, Pleural effusion, Anemia, Hypokalemia, HTN 2D Dimensions Left Atrium 3.71 cm F: 2.7 - 3.8 LA Volume 59.40 mL LA Volume Index 33.666005 mL/m2 (M/F) 16-34 EF AP4 78.80 % GL Strain -29.0 % M-Mode Dimensions RVDd 2.98 cm (0.9-2.6) LA Diam 4.41 cm (1.9-4.0) LVDd 4.25 cm (3.5-5.7) LVDs 2.43 cm (3.5-5.7) IVSd 0.90 cm (0.6-1.1) PWd 0.87 cm (0.6-1.1) EF (Teich) 70.50% EPSs 0.30 cm FS 39.40% EDV (Teich) 70.40 mL TAPSE 2.25 (<1.7) ESV (Teich) 20.80 mL LV Diastology E Decel Time 217 (160-240 msec) E/A Ratio 0.75 MED A' 18.20 cm/s LAT A' 12.70 cm/s Aortic Valve LEX Index 0.95 cm2/m2 AoV Peak Cristian. 179.0 (50-130 cm/s) AO Peak GR. 12.90 mmHg AO Mean GR. 7.80 (<5 mmHg) AO VTI 37.4 (18-25 cm) LEX (VTI) 1.70 (2.5-4.5 cm2) Mitral Valve MV A Velocity 131.0 (40-130 cm/s) E/A Ratio 0.75 Pulmonary Valve PV Peak Velocity 97.0 (50-150 cm/s) HI End VMAX 178.0 cm/s Left Ventricle The left ventricle is normal size. The left ventricular systolic function is normal. The left ventricular ejection fraction is within the normal range. There is increased LV wall thickness. There is normal LV segmental wall motion. Transmitral Doppler flow pattern suggests impaired LV relaxation. LVEF is 60%. Right Ventricle The right ventricle is normal size. The right ventricular systolic function is normal. Atria The left atrium is mildly dilated. The right atrium size is normal. There is no Doppler evidence of interatrial shunt. Aortic Valve Aortic valve is mildly thickened. There is no aortic valvular stenosis. No aortic regurgitation is present. Mitral Valve The mitral valve leaflets are mildly thickened. No evidence of mitral valve stenosis. Mild mitral regurgitation. Tricuspid Valve Tricuspid valve is grossly normal in structure and function. There is insufficient TR jet to estimate RVSP. Pulmonic Valve The pulmonary valve is normal in structure. Mild pulmonic regurgitation. Great Vessels The aortic root is normal in size. IVC is normal in size and collapses >50% with inspiration. Pericardium There is no pericardial effusion. Other Information Study Quality: Fair Conclusion Normal biventricular systolic function. Mild LA dilation. Mild MR, mild PI. Electronically signed by : Joselin Garcia MD 10/19/2024 22:42:28
[2024-10-18 03:16] LABS: Eosinophils % 3 % (0-3); Lymphocytes % 17 % (10-50); Monocytes % 1 % (2-9); Neutrophils % 78 % (42-76); Total Cells Counted 100
[2024-10-18 03:17] LABS: Platelet Estimate Normal; Stomatocytes 1+
[2024-10-18] MEDS: PIPERACILLIN/TAZO 3.375 GM in 0.9 % SODIUM CHLORIDE 50 ML IV (03:57)
[2024-10-18] MEDS: POTASSIUM CHLORIDE 20MEQ TAB 40 MEQ PO (03:58)
[2024-10-18 04:09] LABS: Troponin I < 0.01 ng/ml (0.00-0.034)
--- NOTE | 2024-10-18 05:01 | PC.NURSE ---
Pt. was admitted to med/surg from the ED [facility]. Pt. was seen in the ED on Monday and was admitted for Flu A. Pt. was discharged on Monday with a new oxygen requirement. O2 2 liters per NC. Per patient and her . Pt. has been feeling bad since discharge. Pt. feels achy, weak, . Pt. c/o cough and feeling cold. Pt. is alert and orientated x 4. Pt. received IV antibiotics. Pt's potassium level was a little low and Pt. was given PO poitassium. Pt. resting comfortable in the bed. Pt. has a congested cough. VSS. Personal items and call awan in reach.
[2024-10-18 07:04] LABS: Basophils # 0.1 K/mm3 (0-0.2); Basophils % 0.4 % (0.1-2.0); Eosinophils # 0.2 K/mm3 (0.0-0.4); Eosinophils % 1.4 % (0.1-12.0); Hematocrit 26.8 % (37.0-47.0); Lymphocytes # 1.7 K/mm3 (0.7-4.5); Lymphocytes % 12.4 % (10-50); Mean Corpuscular HGB Conc 35.1 g/dL (31.8-35.4); Mean Corpuscular Volume 85.6 fl (81-99); Mean Platelet Volume 10.1 fl (7.4-10.4); Monocytes # 0.7 K/mm3 (0.1-1.0); Monocytes % 5.3 % (1.7-9.3); Neutrophils # 10.3 K/mm3 (1.8-7.8); Neutrophils % 76.1 % (37.0-80.0); Platelet Count 408 K/mm3 (142-424); Red Blood Count 3.13 M/mm3 (4.20-5.40); Red Cell Distribution Width 13.1 % (11.5-17.5); White Blood Count 13.5 K/mm3 (4.8-10.8)
[2024-10-18 07:25] LABS: Troponin I < 0.01 ng/ml (0.00-0.034)
[2024-10-18 07:30] LABS: Hemoglobin 9.4 g/dL (12.2-16.2)
[2024-10-18 07:44] LABS: Anion Gap 9.6 mEq/L (5-15); Blood Urea Nitrogen 7 mg/dl (7-17); Carbon Dioxide 26 mmol/L (22.0-30.0); Chloride 103 mmol/L (98-107); Creatinine Clearance Estimated 51 mL/min (50-200); Estimated Glomerular Filt Rate 119 ml/min (>60); GFR (African American) 144 ML/MIN (>60); Glucose 108 mg/dl (74-100); Potassium 3.6 mmoL/L (3.5-5.1); Sodium 135 mmol/L (136-145)
[2024-10-18 08:01] LABS: Procalcitonin 0.585 ng/mL (0.0-2.0)
[2024-10-18] MEDS: HEPARIN SODIUM 5,000 UNIT/ML VIAL 5000 UNIT SUBCUT ×2 (08:51→12:45)
[2024-10-18] MEDS: guaiFENesin 600 MG TAB.ER.12H PO (08:51)
--- NOTE | 2024-10-18 08:55 | HMH.PHAINT1 ---
Pharmacy Intervention Comments: MEDICATION RECONCILIATION COMPLETED ON PATIENT USING EXTERNAL FILL HISTORY FROM PHARMACY. -JUSTIN CHÁVEZ, ROBERTD
[2024-10-18] MEDS: PIPERACILLIN/TAZO 4.5 GM in 0.9 % SODIUM CHLORIDE 100 ML IV (09:03)
--- NOTE | 2024-10-18 12:17 | HMH.PTEV ---
Physical Therapy Evaluation Rehab PT IP Evaluation Start: 10/18/24 10:40 Freq: ONCE Status: Active Protocol: Document 10/18/24 12:05 BERNICE (Rec: 10/18/24 12:17 BERNICE [id number]) Subjective/History History History 79-year-old female who has a past medical history significant for hypertension and breast cancer who presents with a chief complaint of intermittent altered mental status, progressive weakness, and shortness of breath. Due to her symptoms, patient presented to the emergency room for evaluation. While in the emergency room, plain films of the chest was consistent with several new healed defined nodular densities bilaterally and diffuse airspace disease in the left lung base consistent with multifocal pneumonia and a small left pleural effusion is suspected. She reports she lives with her spouse, 2 [address] the home, and she is generally independent with all mobility without an AD. Subjective Subjective Pt presents asleep, easily aroused, supine in bed, and agrees to treatment. Rehab PT IP Eval Objective Appearance Patient Behavior Appropriate Patient Orientation Person,Place,Time Difficulty following instructions none Speech Pattern Clear Ambulation Patient Able to Ambulate Yes Ambulation Observation IP General Gait Pattern Observation No Deviations/Normal Ambulation Distance (feet) 30 Ambulation Assistive Device None Ambulation Ability Supervision/Stand by Balance Ability to Arise Able, uses arms to help Sitting Balance Steady, safe Standing Balance Steady, wide stance Dynamic Sitting Balance Ability Good Dynamic Standing Balance Ability Good Transfers Bed Transfer Ability Supervision/Stand by Chair Transfer Ability Supervision/Stand by Sit to Stand Bed Transfer Ability Supervision/Stand by Sit to Stand Chair Transfer Ability Supervision/Stand by Rehab PT IP prob,goals,plan Problems Date of Evaluation: 10/18/24 Discharge Plan PT Discharge Plan Pt currently appears to be appropriate to return home once medically stable for d/c. Currently has no inpatient therapy needs. Eval Complexity Eval Charge Codes 48277 - High Complexity PHYSICIAN CERTIFICATION: I certify the specified therapy services for Tayler Salinas are required, authorized, and reviewed every 30 days.
[2024-10-18 12:28] LABS: Microscopic, Urine URINE MICROSCOPIC (MICROSCOPIC)
[2024-10-18 12:30] LABS: Appearance,Urine CLEAR (Clear); Bilirubin,Urine Negative (Negative); Blood, Urine Negative (Negative); Color,Urine YELLOW (Yellow); Glucose,Urine (UA) Negative (Negative); Ketones,Urine TRACE (Negative); Leukocyte Esterase,Urine Negative (Negative); Nitrate,Urine Negative (Negative); Protein,Urine TRACE (Negative); Specific Gravity, Urine 1.025 (1.005-1.030)
[2024-10-18 12:49] LABS: Bacteria,Urine Trace /lpf; RBC,Urine Occasional #/hpf (0-3); Squamous Epithelial Cell,Urine Occasional #/hpf (0-5); WBC,Urine Occasional #/hpf (0-3)
--- NOTE | 2024-10-18 14:14 | P.DS_ITS ---
General Admission date:: 10/18/24 HPI HPI HPI: This is an 79-year-old female who has a past medical history significant for hypertension and breast cancer who presents with a chief complaint of intermittent altered mental status, progressive weakness, and shortness of breath. Due to her symptoms, patient presented to the emergency room for evaluation. While in the emergency room, plain films of the chest was consistent with several new healed defined nodular densities bilaterally and diffuse airspace disease in the left lung base consistent with multifocal pneumonia and a small left pleural effusion is suspected. Due to these findings, patient is being admitted for further management. During my evaluation of the patient, patient states she has had some confusion. She also endorses having a productive cough that is tenacious at times and is described as thick and white. She has had progressive weakness with some shortness of breath. It is worth mentioning that she was recently admitted to our facility and diagnosed with flu A. She was observed overnight and discharged home on Tamiflu. Patient states that while taking the Tamiflu, she started to experience confusion, so she stopped taking the Tamiflu on Monday. She was sent home with supplemental oxygen upon discharge from our facility. Patient also states she has been having some lethargy and worsening dyspnea. She had 1 loose stool. She is currently denying any chest pain, lightheadedness, dizziness, fever, chills, rigors, nausea, vomiting, PND, orthopnea, and persistent diarrhea. Additional pertinent vitals obtained include a white blood cell count of 15.5, red blood cell count of 3.43, hemoglobin 10.5, hematocrit 29.5, sodium 134, potassium of 3, blood glucose of 117, AST of 47, alkaline phosphate of 232, BNP of 1120, and albumin of 3.4. Hospital Course Hospital Course Hospital Course: Tayler Salinas is a 79-year-old female who presents with confusion, increased productive cough, shortness of breath and was admitted for influenza A, community-acquired pneumonia. #Influenza A #Sepsis #Community-acquired pneumonia ? Diagnosed with influenza A about a week ago, treated with Tamiflu however patient was not able to tolerated at home. ? Returned with confusion, shortness of breath with CXR showing mild multifocal pneumonia. ? Initial WBC 15, with tachycardia. ? Clinically improved with ceftriaxone, doxycycline. Patient felt much better on day of discharge. ? PT consulted, patient independent and did not require further rehab needs. ? Discharged with cefdinir, doxycycline for 5 more days. ? Continue 2 L baseline oxygen, new requirement since week ago for influenza/pneumonia. Will follow-up with PCP for weaning. #Elevated BNP ? BNP 1120, no signs of volume overload. ? ECHO 10/18/2024 showed normal biventricular function. #Hypertension #Hyperlipidemia ? Continue home losartan, simvastatin. History of breast cancer on right side status post mastectomy. Reportedly cancer free since mastectomy in 1999. Exam Data for Last 24 hours Vital signs and Labs for Last 24 Hours: Temp Pulse Resp BP Pulse Ox O2 Del Method O2 Flow Rate 98.3 F 106 H 18 141/77 H 95 Nasal Cannula 2 10/18/24 08:00 10/18/24 08:00 10/18/24 08:00 10/18/24 08:00 10/18/24 08:00 10/18/24 13:00 10/18/24 09:00 Laboratory Results - last 24 hr 10/18/24 00:41: WBC 15.5 H, RBC 3.43 L, Hgb 10.5 L, Hct 29.5 L, MCV 86.0, MCH 30.6, MCHC 35.6 H, RDW 13.1, Plt Count 415 D, MPV 9.8, Neut % (Auto) 76.0, Lymph % (Auto) 11.8, [place] % (Auto) 5.4, Eos % (Auto) 1.3, Baso % (Auto) 0.5, Neut # (Auto) 11.7 H, Lymph # (Auto) 1.8, [place] # (Auto) 0.8, Eos # (Auto) 0.2, Baso # (Auto) 0.1, Total Counted 100, Neutrophils % (Manual) 78 H, Lymphocytes % (Manual) 17, Monocytes % (Manual) 1 L, Eosinophils % (Manual) 3, Basophils % (Manual) 1.0, Platelet Estimate Normal, Stomatocytes 1+, Sodium 134 L, Potassium 3.0 L, Chloride 99, Carbon Dioxide 27, Anion Gap 11.0, BUN 7, Creatinine 0.60, Estimated Creat Clear 49, Estimated GFR 96, Est GFR ( Amer) 116, Glucose 117 H, Lactate 0.9, Calcium 8.5, Total Bilirubin 0.5, AST 47 H, ALT 30, Alkaline Phosphatase 232 H, Troponin I < 0.01, NT-Pro-B Natriuret Pep 1120 H, Total Protein 6.6, Albumin 3.4 L, Globulin 3.2, Albumin/Globulin Ratio 1.1 10/18/24 00:46: VBG pH 7.39, VBG pCO2 45.2, VBG pO2 41.8 H, VBG HCO3 26.8, VBG Total CO2 28.2 H, VBG O2 Saturation 78.1 H, VBG Base Excess 1.9, VBG Lactic Acid 1.3 10/18/24 03:33: Troponin I < 0.01 10/18/24 05:49: WBC 13.5 H, RBC 3.13 L, Hgb 9.4 L D, Hct 26.8 L, MCV 85.6, MCH 30.0, MCHC 35.1, RDW 13.1, Plt Count 408, MPV 10.1, Neut % (Auto) 76.1, Lymph % (Auto) 12.4, [place] % (Auto) 5.3, Eos % (Auto) 1.4, Baso % (Auto) 0.4, Neut # (Auto) 10.3 H, Lymph # (Auto) 1.7, [place] # (Auto) 0.7, Eos # (Auto) 0.2, Baso # (Auto) 0.1, Sodium 135 L, Potassium 3.6, Chloride 103, Carbon Dioxide 26, Anion Gap 9.6, BUN 7, Creatinine 0.50 L, Estimated Creat Clear 51, Estimated GFR 119, Est GFR ( Amer) 144 D, Glucose 108 H, Calcium 8.0 L, Troponin I < 0.01, Procalcitonin 0.585 10/18/24 12:22: Urine Color Yellow, Urine Appearance Clear, Urine pH 6.0, Ur Specific [place] 1.025, Urine Protein Trace, Urine Glucose (UA) Negative, Urine Ketones Trace, Urine Blood Negative, Urine Nitrate Negative, Urine Bilirubin Negative, Urine Urobilinogen 4.0, Ur Leukocyte Esterase Negative, Urine RBC Occasional, Urine WBC Occasional, Ur Squamous Epith Cells Occasional, Urine Bacteria Trace I & O for Last 24 hours: Intake & Output 10/15/24 10/16/24 10/17/24 10/18/24 23:59 23:59 23:59 23:59 Intake Total 770 / 770 Output Total 0 / 0 Balance 770 / 770 Weight 69.853 kg 71.713 kg Microbiology Reports for the Last 24 Hours: Microbiology 10/18/24 03:13 Sputum - Expectorated Sputum Gram Stain - Final Constitutional Constitutional: no acute distress, average body habitus, chronically ill appearing and cooperative *Routine HEENT Exam Head: Present normocephalic Eye: Present EOMI and PERRL ENT: Present mucous membranes moist *Routine Neck Exam Neck: Present supple; Absent lymphadenopathy Routine Chest/Breast/Axilla Exam Comments: Status post right mastectomy *Routine Respiratory Exam Respiratory: Present prolonged expiratory phase and crackles (Right lung field); Absent rhonchi or wheezes *Routine Cardiovascular Exam Cardiovascular: Present RRR *Routine Abdominal Exam Abdominal: Present soft and normoactive bowel sounds; Absent tenderness *Routine Rectal Exam Patient deferred: visual exam *Routine Exam Patient deferred: external exam *Routine Extremities Exam Extremities: Absent cyanosis, clubbing or edema *Routine Skin Exam Skin: Present intact and warm; Absent rash *Routine Neurological Exam Neurological: Present alert, oriented X3 and moving all extremities; Absent altered mental status Results Data Completed and Pending Labs on day of discharge: Labs from last 24 hours 10/18/24 10/18/24 10/18/24 12:22 05:49 03:33 WBC 13.5 H RBC 3.13 L Hgb 9.4 L D Hct 26.8 L MCV 85.6 MCH 30.0 MCHC 35.1 RDW 13.1 Plt Count 408 MPV 10.1 Neut % (Auto) 76.1 Lymph % (Auto) 12.4 [place] % (Auto) 5.3 Eos % (Auto) 1.4 Baso % (Auto) 0.4 Neut # (Auto) 10.3 H Lymph # (Auto) 1.7 [place] # (Auto) 0.7 Eos # (Auto) 0.2 Baso # (Auto) 0.1 Total Counted Neutrophils % (Manual) Lymphocytes % (Manual) Monocytes % (Manual) Eosinophils % (Manual) Basophils % (Manual) Platelet Estimate Stomatocytes VBG pH VBG pCO2 VBG pO2 VBG HCO3 VBG Total CO2 VBG O2 Saturation VBG Base Excess VBG Lactic Acid Sodium 135 L Potassium 3.6 Chloride 103 Carbon Dioxide 26 Anion Gap 9.6 BUN 7 Creatinine 0.50 L Estimated Creat Clear 51 Estimated GFR 119 Est GFR ( Amer) 144 D Glucose 108 H Lactate Calcium 8.0 L Total Bilirubin AST ALT Alkaline Phosphatase Troponin I < 0.01 < 0.01 NT-Pro-B Natriuret Pep Total Protein Albumin Globulin Albumin/Globulin Ratio Procalcitonin 0.585 Urine Color Yellow Urine Appearance Clear Urine pH 6.0 Ur Specific [place] 1.025 Urine Protein Trace Urine Glucose (UA) Negative Urine Ketones Trace Urine Blood Negative Urine Nitrate Negative Urine Bilirubin Negative Urine Urobilinogen 4.0 Ur Leukocyte Esterase Negative Urine RBC Occasional Urine WBC Occasional Ur Squamous Epith Cells Occasional Urine Bacteria Trace 10/18/24 10/18/24 00:46 00:41 WBC 15.5 H RBC 3.43 L Hgb 10.5 L Hct 29.5 L MCV 86.0 MCH 30.6 MCHC 35.6 H RDW 13.1 Plt Count 415 D MPV 9.8 Neut % (Auto) 76.0 Lymph % (Auto) 11.8 [place] % (Auto) 5.4 Eos % (Auto) 1.3 Baso % (Auto) 0.5 Neut # (Auto) 11.7 H Lymph # (Auto) 1.8 [place] # (Auto) 0.8 Eos # (Auto) 0.2 Baso # (Auto) 0.1 Total Counted 100 Neutrophils % (Manual) 78 H Lymphocytes % (Manual) 17 Monocytes % (Manual) 1 L Eosinophils % (Manual) 3 Basophils % (Manual) 1.0 Platelet Estimate Normal Stomatocytes 1+ VBG pH 7.39 VBG pCO2 45.2 VBG pO2 41.8 H VBG HCO3 26.8 VBG Total CO2 28.2 H VBG O2 Saturation 78.1 H VBG Base Excess 1.9 VBG Lactic Acid 1.3 Sodium 134 L Potassium 3.0 L Chloride 99 Carbon Dioxide 27 Anion Gap 11.0 BUN 7 Creatinine 0.60 Estimated Creat Clear 49 Estimated GFR 96 Est GFR ( Amer) 116 Glucose 117 H Lactate 0.9 Calcium 8.5 Total Bilirubin 0.5 AST 47 H ALT 30 Alkaline Phosphatase 232 H Troponin I < 0.01 NT-Pro-B Natriuret Pep 1120 H Total Protein 6.6 Albumin 3.4 L Globulin 3.2 Albumin/Globulin Ratio 1.1 Procalcitonin Urine Color Urine Appearance Urine pH Ur Specific [place] Urine Protein Urine Glucose (UA) Urine Ketones Urine Blood Urine Nitrate Urine Bilirubin Urine Urobilinogen Ur Leukocyte Esterase Urine RBC Urine WBC Ur Squamous Epith Cells Urine Bacteria DS: Diagnosis Discharge Diagnosis (1) Multifocal pneumonia: Status: Acute Code(s): J18.9 - Pneumonia, unspecified organism (2) Acute hypoxemic respiratory failure: Status: Acute Code(s): J96.01 - Acute respiratory failure with hypoxia (3) Hypokalemia: Status: Acute Code(s): E87.6 - Hypokalemia (4) Leukocytosis: Status: Acute Code(s): D72.829 - Elevated white blood cell count, unspecified Qualifiers: Leukocytosis type: unspecified Qualified Code(s): D72.829 - Elevated white blood cell count, unspecified (5) Hyponatremia: Status: Acute Code(s): E87.1 - Hypo-osmolality and hyponatremia (6) Elevated liver enzymes: Status: Acute Code(s): R74.8 - Abnormal levels of other serum enzymes Meds Home Medications and Allergies Home Medications ?Medication ?Instructions ?Recorded ?Confirmed ?Type losartan 25 mg tablet 25 mg PO DAILY 10/13/24 10/18/24 History simvastatin 10 mg tablet 10 mg PO HS 10/13/24 10/18/24 History cefdinir 300 mg capsule 300 mg PO BID 5 days #10 caps 10/18/24 Rx doxycycline monohydrate 100 mg 100 mg PO BID 5 days #10 caps 10/18/24 Rx capsule New Prescriptions to Start Prescriptions: cefdinir Hayder Strickland doxycycline monohydrate Hayder Strickland Allergies Allergy/AdvReac Type Severity Reaction Status Date / Time peanut Allergy Other Verified 10/13/24 12:49 Discharge Plan Disposition Patient Disposition: Home, Self-Care Condition: Fair Follow up Plan Follow up with: Constanza Garcia APRN [Primary Care Provider] - 10/28/24 10:00 am Prescriptions/Medication Reconciliation: New cefdinir 300 mg capsule 300 mg PO BID 5 Days Qty: 10 0RF doxycycline monohydrate 100 mg capsule 100 mg PO BID 5 Days Qty: 10 0RF Continued losartan 25 mg tablet 25 mg PO DAILY Patient Comments: TAKE 1 TABLET BY MOUTH ONCE DAILY simvastatin 10 mg tablet 10 mg PO HS Patient Comments: TAKE 1 TABLET BY MOUTH ONCE DAILY Problem Reconciliation Problems Reviewed?: Yes Patient Discharge Instructions Patient Instructions: DI for Pneumonia -- Adult Print Language: Turkmen Providers Primary Care Provider: Constanza Garcia Admit Provider: Hayder Strickland Attending Provider: Hayder Strickland
--- NOTE | 2024-10-21 10:59 | SW/DCPLANNER ---
Spoke with patients on the phone. Patients stated that she is doing very well. Patients stated that they were at her follow up appointment. Patients stated clinic pharmacy brought her medicine to her bedside before she was discharged. Patients stated that they have no concerns or questions at this time. Ravi Fraga
== END 2024-10-18 15:18 | disposition home or self-care (01) ==
LOC: ER 10-18 02:35 → 2ND 10-18 02:46
PROVIDERS: Nurse Practitioner Family; Admitting Provider Student in an Organized Health Care Education/Training Program; Emergency Provider Emergency Medicine; PCP Nurse Practitioner Family; Visit Provider Student in an Organized Health Care Education/Training Program
DX: J18.9 Pneumonia, unspecified organism (principal); J96.01 Acute respiratory failure with hypoxia; R41.0 Disorientation, unspecified; E87.6 Hypokalemia; A41.9 Sepsis, unspecified organism; E78.5 Hyperlipidemia, unspecified; D72.829 Elevated white blood cell count, unspecified; E87.1 Hypo-osmolality and hyponatremia; R74.8 Abnormal levels of other serum enzymes; J10.1 Influenza due to other identified influenza virus with other respiratory manifestations; Z85.3 Personal history of malignant neoplasm of breast; Z90.10 Acquired absence of unspecified breast and nipple; Z79.899 Other long term (current) drug therapy; Z80.9 Family history of malignant neoplasm, unspecified
CPT/HCPCS: 36415; 71046; 80048; 80053; 81001; 82803; 83605; 83880; 84145; 84484; 85007; 85025; 85027; 87040; 87070; 87077; 87186; 87205; 93005; 93306; 97163; 99285; G0378; J1644; J2543; J7120